=== PATIENT | female | born 1935 | race Caucasian/White ===

== ENCOUNTER 2018-07-10 15:21 | Inpatient (IN) | payer MEDICARE, BC ==
--- NOTE | 2018-07-10 16:26 | CT ---
CT CERVICAL SPINE NONCONTRAST: History: Neck injury. Fall. FINDINGS: Vertebral body height and alignment are maintained. Disc space narrowing most pronounced at the C6-7 level. Osteophytosis throughout the vertebral bodies and facets. Cervicothoracic junction is intact. IMPRESSION: 1. Degenerative changes cervical spine. No acute osseous abnormalities are demonstrated. 2. Atherosclerosis. POS: KENYATTA
--- NOTE | 2018-07-10 16:28 | CT ---
CT BRAIN: History: Unwitnessed fall, tachycardia. Pt gurgling upon arrival of EMS. Technique: Noncontrast enhanced CT images of the brain obtained. FINDINGS: There is diffuse cortical atrophy and deep white matter ischemic changes. Old area of infarction seen in the left periventricular white matter. No evidence of acute intracranial masses, hemorrhages, strokes or contusions seen. No evidence of calvarial fractures seen. No evidence of epidural hematoma seen. IMPRESSION: Cortical atrophy and deep white matter ischemic changes. POS: LEANNA
[2018-07-10 16:52] LABS: Bilirubin Negative (Negative); Blood, Urine Moderate (Negative); Clarity CLOUDY (Clear); Glucose, Urine (Dipstick) Negative (Negative); Leukocyte Large (Negative); Nitrite Negative (Negative); Protein, Urine (Dipstick) Trace mg/dL (Neg-Trace); Specific Gravity, Urine 1.013 (1.002-1.036)
[2018-07-10 16:54] LABS: Bacteria/HPF None Seen HPF (None Seen); Hyaline Casts/LPF 7-10 HYALINE CAST LPF (0-3 Hyaline); Squamous Epithelial 0-3 HPF (0-3)
[2018-07-10 17:05] LABS: Hemoglobin 8.8 g/dL (12.0-16.0); Mean Corpuscular HGB CONC 29.5 g/dL (32.0-36.0); Mean Corpuscular Hemoglobin 26.4 pg (27.0-31.0); Mean Corpuscular Volume 89.5 fL (78.0-98.0); Mean Platelet Volume 8.2 fL (7.4-10.4); Platelet Count 368 thou/uL (130-400); RBC Distribution Width 17.5 % (11.5-14.5); Red Blood Cell (RBC) Count 3.32 mill/uL (4.20-5.40); White Blood Cell (WBC) Count 19.3 thou/uL (4.8-10.8)
[2018-07-10 17:10] LABS: INR-International Normal Ratio 1.1; PTT 26.3 SEC (22.9-36.1)
[2018-07-10] MEDS ORDERED: Ondansetron PF 4 MG/2 ML Vial ONE ×3 (17:14→23:50)
[2018-07-10] MEDS ORDERED: Morphine 2 MG/ML SYRINGE ONE ×3 (17:14→23:50)
[2018-07-10 17:26] LABS: ALT (SGPT) 12 U/L (8-55); AST (SGOT) 18 U/L (5-34); Albumin 3.6 g/dL (3.4-4.8); Alkaline Phosphatase 135 U/L (40-150); Anion Gap 16 mmol/L (10-20); BUN (Urea Nitrogen) 29 mg/dL (9.8-20.1); Bilirubin, Total 0.3 mg/dL (0.2-1.2); Calc. Creatinine Clearance 0 mL/min (70-130); Calcium 8.8 mg/dL (7.8-10.44); Carbon Dioxide 19 mmol/L (23-31); Chloride 110 mmol/L (98-107); Estimated GFR-MDRD 48; Globulin 2.7 g/dL (2.4-3.5); Glucose 182 mg/dL (83-110); Potassium 4.1 mmol/L (3.5-5.1); Protein, Total 6.3 g/dL (6.0-8.3); Sodium 141 mmol/L (136-145)
--- NOTE | 2018-07-10 17:43 | RAD ---
RADIOGRAPH CHEST 1 VIEW: 07/10/18 HISTORY: 83-year-old female with tachycardia. FINDINGS: There are no air space densities, pulmonary edema, pneumothorax, or cardiomegaly. The lateral costop hrenic angles are sharp. IMPRESSION: No acute cardiopulmonary findings. zak [] POS: LEANNA
[2018-07-10 17:56] LABS: #Basophils 0.1 thou/uL (0.0-0.2); #Eosinphils 0.1 thou/uL (0.0-0.7); #Lymphocytes 1.2 thou/uL (1.20-3.40); #Monocytes 1.3 thou/uL (0.11-0.59); #Neutrophils 16.6 thou/uL (1.40-6.50); %Basophils 0.7 % (0.0-1.0); %Eosinophils 0.3 % (0.0-10.0); %Lymphocytes 6.1 % (21.0-51.0); %Monocytes 6.7 % (0.0-10.0); %Neutrophils 86.2 % (42.0-75.0); Anisocytosis SLIGHT = 6-15 cells (100X) (0-5/hpf); Hypochromia SLIGHT = 6-15 cells (100X) (0-5/hpf); MDiff Complete? YES; Platelet Morphology Comment Appears Adequate; Polychromasia SLIGHT = 2-3 cells (100X) (0-2/hpf)
[2018-07-10] MEDS ORDERED: Sodium Chloride 0.9% 100 ML ONE (18:09)
[2018-07-10] MEDS ORDERED: cefTRIAXone\\ROCEPHIN 2 GM VIAL ONE (18:09)
[2018-07-11] MEDS ORDERED: Furosemide 40 MG/4 ML VIAL SLOW IVP SCH (00:30)
[2018-07-11] MEDS ORDERED: Ondansetron PF 4 MG/2 ML Vial IVP PRN (02:17)
[2018-07-11 02:36] LABS: Hemoglobin 8.4 g/dL (12.0-16.0)
[2018-07-11 04:28] LABS: Anion Gap 17 mmol/L (10-20); BUN (Urea Nitrogen) 29 mg/dL (9.8-20.1); Calc. Creatinine Clearance 0 mL/min (70-130); Calcium 8.7 mg/dL (7.8-10.44); Carbon Dioxide 19 mmol/L (23-31); Chloride 112 mmol/L (98-107); Estimated GFR-MDRD 44; Glucose 185 mg/dL (83-110); Sodium 144 mmol/L (136-145)
[2018-07-11 06:13] LABS: Hemoglobin 8.3 g/dL (12.0-16.0)
--- NOTE | 2018-07-11 07:54 | HP ---
PRIMARY CARE DOCTOR: [facility]. CODE STATUS: DNR, disclosed with patient's daughter at bedside, okay to continue with medical treatment. TIME OF EVALUATION: 12:05 a.m. CHIEF COMPLAINT: Syncope. HISTORY OF PRESENT ILLNESS: An 83-year-old female patient with past medical history of hypertension and high cholesterol, previous stroke with left side deficit, came to the hospital with having an episode of syncope. The patient does not recall exactly the details as per daughter. It looks like the patient went to the restroom, and she was found on the ground, the EMS was called. The patient was found to be hypotensive, improved with IV fluid administration about 600 mL. The patient has been on GI workup for GI bleeding and has been scheduled for a colonoscopy next week. Symptoms were severe with no clear triggers or alleviating factors, sudden onset, lasted for a few minutes. The patient did not recall details,likely LOC. REVIEW OF SYSTEMS: CONSTITUTIONAL: No fever, chills, or generalized weakness. RESPIRATORY: No cough, sputum production, or shortness of breath. CARDIOVASCULAR: No chest pain or palpitation. GASTROINTESTINAL: The patient has some nausea. No vomiting or diarrhea. The patient does have abdominal pain. THERAPIST RADIATION: The patient has an episode of syncope, does not recall any details during the episode. Did not remember if she hit the floor. Also reported lightheadedness. GENITOURINARY: No burning on urination. EXTREMITIES: No leg swelling. All other systems were reviewed and negative except for the findings mentioned above. PAST MEDICAL HISTORY: As mentioned in the HPI. PAST SURGICAL HISTORY: Hysterectomy, tonsillectomy. PSYCH HISTORY: No previous psych history. FAMILY HISTORY: Reviewed and non contributory for current presentation SOCIAL HISTORY: No alcohol. The patient is a former cigarette smoker. ALLERGIES: CODEINE PHOSPHATE, PENICILLIN, AND SULFA. CURRENT MEDICATIONS: 1. Protonix. 2. Lisinopril. 3. Aspirin. 4. Atorvastatin. 5. Ferrous sulfate. PHYSICAL EXAMINATION: VITAL SIGNS: On presentation, blood pressure 127/48 with heart rate 79, respiratory rate 16, temperature 97.4, and oxygen saturation 95 on 2 L. GENERAL APPEARANCE: The patient is alert, oriented, not in acute distress. HEENT: Eyes, normal conjunctivae. Moist oral mucosa. Anicteric. No JVD. RESPIRATORY: Bilateral air entry. No rales. No wheezes. Symmetric expansion. CARDIOVASCULAR: Normal rate. Regular rhythm. No murmurs. No gallops. No edema. ABDOMEN: Soft. Normal bowel sounds. The patient does have tenderness. No guarding. No rebound. MUSCULOSKELETAL: Baseline range of motion and strength. No tenderness. SKIN: Warm and intact. No pallor. No rash. No redness. EXTREMITIES: Peripheral pulses are present. Capillary refill seems to be intact. NEURO: No evidence of any new focal weakness. Baseline speech. Cranial nerves seems to be intact. PSYCH: The patient is in good mood. No anxiety. Oriented, optimal judgment. DIAGNOSTIC DATA: EKG was reviewed, the patient has normal sinus rhythm, no evidence of acute ischemic events on the EKG at rate of 79, QT corrected 477. Radiology, head CT without contrast shows no acute changes. Neck CT shows no fracture or subluxation, no bony lesion, no cord compression. Chest showed no infiltrate. No pneumothorax, no hemothorax, no masses, no free air, this was read by radiologist. LABORATORY DATA: Labs are reviewed. The patient has a white count of 19.3, hemoglobin 8.8, repeat hemoglobin 8.4, MCV 89, platelet count 368 with coagulation, PT 14, INR 1.1, PTT 26.3. Sodium 141, potassium 4.1, chloride 110, carbon dioxide 19, anion gap 16, BUN 29, creatinine 1.09, GFR 48, glucose 182. LFTs were normal. UA was done, it was positive with 7-10 rbc's and white count greater than 50, too numerous to count. ASSESSMENT AND PLAN: The patient will be placed in the hospital with following medical problems: 1. Possible gastrointestinal bleeding. We will follow up hemoglobin. We will hydrate/transfuse as needed, GI consult for recommendations. GI protection. 2. Leukocytosis, unclear etiology, could be secondary to urinary tract infection or acute physical distress. We will monitor, we will treat accordingly. 3. Possible acute blood loss anemia, from gi bleed, hemoglobin is 8.8. I do not have previous visit's hemoglobin to compare. will trend h/h and transfuse as needed, GI eval for etiology. 4. Hyperglycemia with glucose 182. No diabetes reported. We will monitor, we will adjust treatment as needed. 5. Controlled hypertension, we will reconcile home medications, will not treat aggressively since the patient at risk for hypotension from bleeding. 6. Urinary tract infection. UA is positive. The patient has leukocytosis. The patient has been started on antibiotics, we will adjust treatment as per sensitivity.. 7. High cholesterol. We will reconcile home medications, low-cholesterol diet is advised. 8. Deep venous thrombosis prophylaxis. 9. Syncope. Unclear etiology could be secondary to hypotension secondary to blood loss. We will monitor on tele, we will do an echo in the morning. carotid doppler, work up /treatment of gi bleed. risk assessment: high risk due to new LOC/new/sudden neurological change Job ID: [id number] [facility]
--- NOTE | 2018-07-11 10:39 | ULT ---
CAROTID ULTRASOUND WITH MCNEIL SCALE AND DOPPLER DUPLEX COLOR FLOW IMAGING SPECTRAL ANALYSIS PERFORMED: DATE: 07/11/18 CLINICAL INDICATION: Syncope. FINDINGS: There is scattered mild atherosclerotic calcification of the carotid arteries. PEAK SYSTOLIC VELOCITY (CM/S): Right CCA 102 Left CCA 103 Right ICA 96 Left ICA 118 There is antegrade flow within the visualized bilateral vertebral arteries. IMPRESSION: 1. No hemodynamically significant stenosis of the right internal carotid artery. 2. No hemodynamically significant stenosis of the left internal carotid artery. POS: LEANNA
--- NOTE | 2018-07-11 12:17 | PDOC.EVN ---
Event Note - Event Note Event Note: Patient unchanged. BP maintained. Pulse in 90s. Pale. Dizzy with sitting up. Nurse checking orthostatics. H/H has remained above 8. Spoke with Dr. Law and he recommends clear liquid diet and he will prep her for colonoscopy for tomorrow morning. Will continue to follow vitals and H/H and transfuse if needed.
[2018-07-11 12:28] LABS: Hemoglobin 7.5 g/dL (12.0-16.0)
[2018-07-11] MEDS: Sodium Chloride 0.9% 1,000 ML IV SCH ×3 (12:39→22:00)
[2018-07-11] MEDS: Pantoprazole 80 MG in Sodium Chloride 0.9% 100 ML IVP SCH (13:48)
[2018-07-11 16:36] LABS: Hemoglobin 7.4 g/dL (12.0-16.0); Platelet Count 313 thou/uL (130-400)
[2018-07-11] MEDS: Acetaminophen 325 MG TAB PO PRN (17:13)
[2018-07-11] MEDS ORDERED: cefTRIAXone\\ROCEPHIN 1 GM in Sodium Chloride 0.9% 100 ML IVPB SCH (18:00)
[2018-07-11 19:56] LABS: Platelet Count 283 thou/uL (130-400)
[2018-07-11] MEDS: Ferrous Sulfate 325 MG TAB PO SCH (21:57)
[2018-07-12] MEDS: Pantoprazole 80 MG in Sodium Chloride 0.9% 100 ML IVP SCH ×3 (00:55→12:13)
[2018-07-12 07:56] LABS: Anion Gap 12 mmol/L (10-20); BUN (Urea Nitrogen) 27 mg/dL (9.8-20.1); Calc. Creatinine Clearance 44 mL/min (70-130); Calcium 8.2 mg/dL (7.8-10.44); Carbon Dioxide 17 mmol/L (23-31); Chloride 118 mmol/L (98-107); Estimated GFR-MDRD 49; Glucose 103 mg/dL (83-110); Potassium 3.7 mmol/L (3.5-5.1); Sodium 143 mmol/L (136-145)
[2018-07-12 07:57] LABS: #Basophils 0.1 thou/uL (0.0-0.2); #Eosinphils 0.3 thou/uL (0.0-0.7); #Lymphocytes 1.4 thou/uL (1.20-3.40); #Monocytes 1.1 thou/uL (0.11-0.59); #Neutrophils 15.8 thou/uL (1.40-6.50); %Basophils 0.3 % (0.0-1.0); %Eosinophils 1.7 % (0.0-10.0); %Lymphocytes 7.5 % (21.0-51.0); %Neutrophils 84.5 % (42.0-75.0); Hemoglobin 8.8 g/dL (12.0-16.0); Mean Corpuscular Hemoglobin 25.9 pg (27.0-31.0); Mean Corpuscular Volume 89.3 fL (78.0-98.0); Mean Platelet Volume 8.4 fL (7.4-10.4); Platelet Count 274 thou/uL (130-400); RBC Distribution Width 16.4 % (11.5-14.5); Red Blood Cell (RBC) Count 3.39 mill/uL (4.20-5.40); White Blood Cell (WBC) Count 18.7 thou/uL (4.8-10.8)
[2018-07-12] MEDS: Ferrous Sulfate 325 MG TAB PO SCH ×2 (09:27→21:02)
[2018-07-12] MEDS: Atorvastatin Calcium 20 MG TAB PO SCH (09:27)
[2018-07-12] MEDS ORDERED: ISOVUE-370 76%-LOCM 1 ML ONE (10:14)
[2018-07-12] MEDS: Sodium Chloride 0.9% 1,000 ML IV SCH ×2 (10:56→21:13)
--- NOTE | 2018-07-12 12:25 | PRG ---
DATE OF SERVICE: 07/12/2018 SUBJECTIVE: The patient is seen and examined at the bedside. She does not have much complaints to offer. She ate her lunch without any problems. OBJECTIVE: VITAL SIGNS: Blood pressure is 151/65, pulse is 84, temperature is 98.1, respiratory rate 20, and O2 saturation is 94% on room air. HEENT: Head is atraumatic and normocephalic. She follows my commands. Pupils are responding to light properly. Sclerae are nonicteric. Oral mucosa is moist. Conjunctivae are pinkish. NECK: Supple. LUNGS: Clear. HEART: S1 and S2, normal. No S3. No S4. No any murmur. ABDOMEN: Mildly distended. Tender to even superficial palpation. There is some guarding present in diffuse fashion. I am not able to palpate deeply, because of the amount of pain she gets. Bowel sounds are present. EXTREMITIES: No clubbing, cyanosis, or edema. NEUROLOGIC: She knows that she is in the hospital. She is able to follow my commands. She moves all 4 extremities. I do not see any focal deficits, but definitely she has some memory problems. She thinks that she collapsed in the bathroom at home and apparently, this happened when she was in the restaurant. LABORATORY DATA: Labs showed white count of 18.7, hemoglobin 8.8, hematocrit 30.2, and platelet count 274,000. Sodium of 143, potassium 3.7, chloride 118, CO2 of 17, BUN is 27, and creatinine 1.06. The rest of chemistry within normal limits. Carotid Doppler study did not show any significant hemodynamically stenosis. IMPRESSION: 1. Syncopal episode. The patient was found to have hemoglobin down to 7.0. This morning, she was started on pantoprazole IV drip. She received 1 unit of packed red blood cells. Her hemoglobin is 8.8 at this point. We are going to get Dr. Cruz, who is care information associate today for GI consulted. Apparently, Dr. Tristan, Emergency Room doctor called Dr. Schuler at the time of admission to the hospital. 2. Leukocytosis, most likely related to abdominal pain/process. We will obtain CT with p.o. contrast. 3. Hyperglycemia. PLAN: It was felt that she had urinary tract infection. Since her UA looked quite suspicious for urinary tract infection, she is on antibiotics, which is ceftriaxone, but her urine culture came back negative and stool occult blood test came back negative too. We will continue her pantoprazole drip. We will continue ceftriaxone. We will get GI involved and we will do serial H and H's. Job ID: [id number]
[2018-07-12 13:15] LABS: Hemoglobin 8.5 g/dL (12.0-16.0); Hemoglobin 8.6 g/dL (12.0-16.0)
[2018-07-12] MEDS: Cefepime 1 GM in Sodium Chloride 0.9% 100 ML IVPB SCH (13:58)
--- NOTE | 2018-07-12 15:37 | CT ---
CT ABDOMEN AND PELVIS WITH IV CONTRAST: Date: 07/12/18 PROVIDED CLINICAL HISTORY: Syncope and sepsis. FINDINGS: Small right and trace left pleural fluid. Increased density within the gallbladder may reflect sludge or stones, but is incompletely characteri zed. The liver, spleen, pancreas, and adrenal glands appear unremarkable. Bilateral renal cysts are seen. No evidence for hydronephrosis. There is free intraperitoneal fluid present, primarily about the right hepatic margin. There is conspicuous mural thickening involving the rectum, sigmoid colon, and probably also the desc ending colon, though this is less conspicuous. There is fat stranding seen in the perirectal fat. Uri nary bladder is decompressed, but appears grossly unremarkable. Vascular calcifications noted extensively involving the abdominal aorta and its branches. There is no evidence for bowel obstruction. There is no evidence for free intraperitoneal air. The osseous structures demonstrate no concerning osteoblastic or osteolytic lesions. IMPRESSION: 1. Conspicuous mural thickening involving the rectum, sigmoid colon, and to a lesser extent, descend ing colon, compatible with proctocolitis. Infectious, inflammatory, and ischemic etiologies should be considered. 2. Free intraperitoneal fluid, primarily involving the right hepatic margin. 3. Bilateral pleural fluid. 4. Chronic findings as above. POS: H
[2018-07-12] MEDS: Morphine 4 MG/ML VIAL SLOW IVP PRN (15:49)
[2018-07-12 18:21] LABS: Hemoglobin 10.9 g/dL (12.0-16.0)
[2018-07-12 21:22] LABS: Hemoglobin 9.4 g/dL (12.0-16.0)
[2018-07-12] MEDS ORDERED: GoLYTELY 4,000 ml Bottle PO SCH (21:30)
--- NOTE | 2018-07-13 00:15 | CON ---
DATE OF CONSULTATION: 07/12/2018 REASON FOR CONSULTATION: Anemia, abnormal GI imaging. CONSULTING PHYSICIAN: Dr. Luis Joe. 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 She states that she was in her usual state of health until yesterday when she was at a restaurant. She experienced GI upset prompting her go to the bathroom where she exhibited increased vomiting of nonbloody emesis. During the episode of vomiting, she apparently passed out next to the toilet and upon being found by family/friends, she was minimally responsive and did exhibit increased confusion, disorientation and minimal responsivity for approximately 20 to 30 minutes afterwards. She was also noted to exhibit loss of bladder control with urine noted on the floor, but she did not lose bowel control. With this loss of consciousness, she was subsequently brought to the ER for further evaluation. In the ER, she was noted to have a significantly decreased H and H as well as hypotension, which was responsive to IV fluid administration. Per conversation with the patient and patient's family, she denies any overt GI bleeding for the last 6 months with no complaints of hematemesis, melena, or hematochezia. However, she does state that she has been having approximately 1 solid black stool daily that has been present for the last 2 to 3 months while taking iron supplementation. She currently denies any nausea, vomiting, fevers, chills, but does exhibit lower abdominal pain. Her lower abdominal pain is located primarily in the right lower quadrant that will radiate to the suprapubic region. The pain is characterized as a throbbing type pain, intermittent and will reach a severity of 9/10. She denies any clear exacerbating or alleviating factors. Of note, the patient has never had a colonoscopy before, but does not endorse any significant family history of colon polyps or colon cancer. REVIEW OF SYSTEMS: A 10-category review of systems was obtained with all responses negative except for the pertinent positives as listed in the HPI. PAST MEDICAL HISTORY: As per HPI. PAST SURGICAL HISTORY: Hysterectomy and tonsillectomy. FAMILY HISTORY: Denies any GI malignancies. SOCIAL HISTORY: Denies any tobacco, alcohol, or illicit drug use. OUTPATIENT MEDICATIONS: Reviewed. ALLERGIES: 1. CODEINE. 2. PENICILLIN. 3. SULFA. PHYSICAL EXAMINATION: VITAL SIGNS: Temperature 97.9, pulse 91, blood pressure 139/70, respiratory rate 20, saturating 93% on room air. GENERAL: The patient was lying in bed, in no acute distress. Alert and oriented x4. HEENT: Normocephalic, atraumatic. NECK: Supple. No JVD or scleral icterus noted. CARDIOVASCULAR: Regular rate and rhythm with no discernible murmurs, gallops, or rubs. RESPIRATORY: Clear to auscultation bilaterally with no discernible wheezes or rales. ABDOMEN: Normoactive bowel sounds. Soft, nondistended, however, significant pain to palpation in all abdominal quadrants with both light and deep palpation. Carnett sign positive. EXTREMITIES: No cyanosis, clubbing, or edema. LABORATORY DATA: CBC with a white blood cell count of 18.7, hemoglobin 8.8, hematocrit 30.2, platelets 274. Chemistry with a sodium of 143, potassium 3.7, chloride 118, CO2 of 17, BUN 27, creatinine 1.06, glucose 103. Urinalysis was consistent with a urinary tract infection. IMAGING DATA: CT of the abdomen and pelvis obtained on July 12, 2018 showed free intraperitoneal fluid about the right hepatic margin, but there was also conspicuous mural thickening of the rectum, sigmoid and descending colon with positive fat stranding surrounding. Extensive vascular calcifications of both the abdominal aorta and its branches were also noted. ASSESSMENT AND PLAN: The patient is an 83-year-old female with past medical history of hypertension, hyperlipidemia, and cerebrovascular accident with residual left-sided deficits, presenting with complaints of abdominal pain and significant anemia. Abdominal pain/anemia: The patient is presenting with a relatively acute onset of right lower quadrant abdominal pain that would radiate to the suprapubic region and characterized as a throbbing type sensation, reaching a severity of 9/10 over the same time. The patient also endorses an episode of increased nausea, vomiting, resulting in loss of consciousness and what appears to be a postictal period after regaining consciousness as characterized by minimally responsive and disoriented for the next 20-30 minutes after her loss of consciousness and loss of bladder control. On admission to the ER, she was noted to have a significantly decreased H and H consistent with a significant anemia. However, upon questioning both patient and family, she does not exhibit any overt GI bleeding, although she does take iron supplementations, which could potentially hide an upper GI bleed. At this point, the origin of her anemia is unclear, but could include bleeding within the upper GI tract that has been currently masked by iron supplementation with the differential including esophagitis, gastritis, duodenitis, peptic ulcer disease, arteriovenous malformation, Dieulafoy lesion and/or GI neoplasm. With the resultant blood loss from any of these potential sources, it could have resulted in decreased cerebral perfusion and possible loss of consciousness. Given the significant calcifications of her aorta and its resulting branches, any decreased blood flow/perfusion to the abdomen could also create an ischemic type picture resulting in either ischemic colitis or mesenteric ischemia, both of which could contribute to her current abdominal pain. Given the CT finding showing mural thickening of the distal colon, again an ischemic etiology cannot be ruled out at this time, but neither can a GI neoplastic process. RECOMMENDATIONS: 1. We would continue to trend H and H and transfuse as necessary to maintain an H and H of 7/21. 2. Continue to monitor clinically for signs of active GI bleeding. 3. We would hold on iron supplementation now given the confounding factor for possible melena. 4. We would hold on any anticoagulation now given a possible GI bleeding source. 5. Continue the clear liquid diet today with GoLYTELY to be administered tonight in anticipation of endoscopy tomorrow. 6. We will plan for both upper endoscopy and colonoscopy tomorrow morning for evaluation of the GI tract of anemia of unknown origin. 7. We will continue to follow. Please call with any questions. Job ID: [id number]
[2018-07-13] MEDS: Pantoprazole 80 MG in Sodium Chloride 0.9% 100 ML IVP SCH ×2 (00:37→09:35)
[2018-07-13] MEDS: Cefepime 1 GM in Sodium Chloride 0.9% 100 ML IVPB SCH ×2 (01:22→12:05)
[2018-07-13] MEDS: Morphine 4 MG/ML VIAL SLOW IVP PRN (04:03)
[2018-07-13] MEDS: Sodium Chloride 0.9% 1,000 ML IV SCH ×3 (04:06→16:33)
[2018-07-13] MEDS ORDERED: Magnesium Citrate 300 ML BOT PO SCH (07:15)
[2018-07-13] MEDS: Ferrous Sulfate 325 MG TAB PO SCH ×2 (08:19→21:50)
[2018-07-13] MEDS: Atorvastatin Calcium 20 MG TAB PO SCH (08:19)
[2018-07-13] MEDS ORDERED: GoLYTELY 4,000 ml Bottle PO SCH ×2 (10:15)
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
--- NOTE | 2018-07-13 13:41 | PRG ---
DATE OF SERVICE: 07/13/2018 SUBJECTIVE: The patient is seen and examined at the bedside. She is quite comatose during my visit. She just received a dose of morphine for her abdominal discomfort. Her daughter is present in the room during my visit and I had a long discussion with her about the patient's current situation. OBJECTIVE: VITAL SIGNS: Blood pressure is 151/68, pulse is 77, temperature is 97.8, respirations 17, and O2 saturation is 94% on room air. She is arousable, but she falls asleep quickly. LUNGS: Breath sounds somewhat diminished at both bases, but no rales or wheezing. HEART: S1, S2 normal. No S3. No S4. ABDOMEN: Soft. Slightly tender on deeper palpation, but again the patient received morphine injection. Bowel sounds somewhat sluggish. EXTREMITIES: No clubbing, cyanosis, or edema. NEUROLOGIC: Comatose. She follows my commands when she is aroused. We will reassess her neurological status later when she is not under influence of morphine. LABORATORY DATA: None today. CT of the abdomen and pelvis showed; 1. Conspicuous mural thickening involving the rectum, sigmoid colon and to a lesser extent descending colon compatible with proctocolitis infectious inflammatory or ischemic etiology with some free intraperitoneal fluid, primarily involving the right hepatic margin and bilateral pleural fluid. 2. Echocardiogram showed technically inadequate exam. Consider a repeat exam. Ejection fraction is visualized at 50% to 55%. Structurally, normal mitral valves. Normal aortic valve and mild tricuspid regurgitation, with normal size left atrium. IMPRESSION: 1. Syncopal episode, most likely related to GI blood loss. The patient was transfused yesterday with 1 unit of packed red blood cells. The last hemoglobin is 9.4 from last night. The patient is monitored closely for active GI bleeding. Her iron supplementation was put on hold and she is not on any anticoagulation at this point. She is prepped for her colonoscopy. Apparently, this cannot be done today, so it is postponed until tomorrow morning. 2. Colitis of unclear etiology at this point. 3. Leukocytosis, most likely related to acute colitis. We will obtain CBC. 4. Hypertension. 5. Suspected urinary tract infection, but urine cultures came back negative, which is making the diagnosis unlikely correct. PLAN: Plan is to continue close monitoring. Obtain CBC. She is going to be scoped tomorrow by Dr. Cruz. I will continue cefepime 1 g every 12 hours. Continue pantoprazole drip. Continue p.r.n. morphine. Job ID: [id number]
[2018-07-13] MEDS: metroNIDAZOLE 500 MG in Premix Bag 1 BAG IVPB SCH ×2 (13:54→21:51)
[2018-07-13 14:18] LABS: #Eosinphils 0.4 thou/uL (0.0-0.7); #Lymphocytes 1.3 thou/uL (1.20-3.40); #Monocytes 1.2 thou/uL (0.11-0.59); #Neutrophils 15.6 thou/uL (1.40-6.50); %Basophils 0.3 % (0.0-1.0); %Eosinophils 2.2 % (0.0-10.0); %Lymphocytes 7.1 % (21.0-51.0); %Monocytes 6.5 % (0.0-10.0); Hemoglobin 8.9 g/dL (12.0-16.0); Mean Corpuscular Hemoglobin 27.2 pg (27.0-31.0); Mean Corpuscular Volume 87.6 fL (78.0-98.0); Mean Platelet Volume 8.6 fL (7.4-10.4); Platelet Count 255 thou/uL (130-400); RBC Distribution Width 16.2 % (11.5-14.5); Red Blood Cell (RBC) Count 3.26 mill/uL (4.20-5.40); White Blood Cell (WBC) Count 18.5 thou/uL (4.8-10.8)
--- NOTE | 2018-07-13 22:34 | PRG ---
DATE OF SERVICE: 07/13/2018 REASON FOR CONSULTATION: Anemia, abnormal GI imaging. SUBJECTIVE: The patient was scheduled for both upper and lower endoscopy this morning, but was unable to tolerate the prep last night, drinking approximately 600 mL of the 4000 mL GoLYTELY prep. She did experience some loose stools, but were still very unclear, making progression towards the colonoscopy problematic and prone to complication. She did receive an additional bottle of magnesium citrate in order to facilitate passage of bowel movements and was able to tolerate that somewhat better, but given her history of cardiac disease, this is less preferable to GoLYTELY due to fluid shifts. Upon conferring with the patient today, she states that she still continues to have some mild abdominal pain, although it seems to be improved when compared to previous, although she had received pain medication earlier in the day to help with her pain control. Currently, she denies any nausea, vomiting, fevers, chills, dysphagia, or odynophagia. OBJECTIVE: VITAL SIGNS: Temperature 97.6, pulse 76, blood pressure 144/60, respiratory rate 17, saturating 93% on room air. GENERAL: The patient was lying in bed, in no acute distress. Alert and oriented x4. CARDIOVASCULAR: Regular rate and rhythm. RESPIRATORY: Clear to auscultation bilaterally. ABDOMEN: Normoactive bowel sounds. Soft, nondistended. Significant pain to palpation in all abdominal quadrants to both light and deep palpation. EXTREMITIES: No cyanosis, clubbing, or edema. LABORATORY STUDIES: No current labs were available for review. IMAGING DATA: No current GI imaging is available for review. ASSESSMENT AND PLAN: The patient is an 83-year-old female with past medical history of hypertension, hyperlipidemia, cerebrovascular accident with left-sided deficits, presenting with generalized abdominal pain and significant anemia. Abdominal pain/anemia. The patient initially presented with relatively acute onset of right lower quadrant abdominal pain that would radiate to the suprapubic region and characterizes a throbbing type sensation with exquisite sensitivity to movement and palpation on physical exam. This was associated with increased nausea, vomiting, and what appeared to be a loss of consciousness and a possible postictal period after regaining consciousness. On admission to the ER, she was noted to have significantly decreased H and H, but she denies any symptoms of overt GI bleeding. She has been having black stools since starting iron supplementation, but these stools have been relatively solid in nature raising the concern whether or not there maybe an occult GI bleed going on. She did undergo a CT scan on admission showing mural thickening of the distal colon, raising concern for ischemic versus inflammatory pathology in that particular region. RECOMMENDATIONS: 1. Would continue to trend H and H and transfuse as necessary to maintain an H and H of 7/. 2. Continue to monitor clinically for signs of active GI bleeding. 3. Would continue to hold any anticoagulation for now given possible GI bleeding. 4. I spoke with the patient and strongly encouraged adherence to the GoLYTELY prep prior to colonoscopy to facilitate visualization of the colonic mucosa. She states that she will try her best in order to comply with this prior to colonoscopy. 5. We will plan for both upper and lower endoscopy tomorrow for evaluation of the GI tract. 6. We will continue to follow. Please call with any questions. Job ID: [id number]
[2018-07-14] MEDS: Cefepime 1 GM in Sodium Chloride 0.9% 100 ML IVPB SCH ×2 (01:16→14:05)
[2018-07-14] MEDS: Pantoprazole 80 MG in Sodium Chloride 0.9% 100 ML IVP SCH (01:18)
[2018-07-14] MEDS: metroNIDAZOLE 500 MG in Premix Bag 1 BAG IVPB SCH ×3 (05:15→21:21)
[2018-07-14] MEDS: Sodium Chloride 0.9% 1,000 ML IV SCH ×2 (05:16→14:05)
[2018-07-14] MEDS: Ferrous Sulfate 325 MG TAB PO SCH ×2 (08:32→21:21)
[2018-07-14] MEDS: Atorvastatin Calcium 20 MG TAB PO SCH (08:32)
[2018-07-14] MEDS ORDERED: Albuterol Sulfate 2.5 mg/3 ml Neb ONE (10:25)
[2018-07-14] MEDS ORDERED: Promethazine HCl 25 MG/ML VIAL IM PRN (12:38)
[2018-07-14] MEDS ORDERED: Promethazine HCl 25 MG/ML VIAL SLOW IVP PRN (12:38)
[2018-07-14] MEDS ORDERED: Ondansetron HCl/PF 4 MG/2 ML Vial IVP PRN (12:38)
--- NOTE | 2018-07-14 14:49 | PRG ---
DATE OF SERVICE: 07/14/2018 SUBJECTIVE: The patient is seen and examined at bedside. She just came back from the procedure room, where she had colonoscopy done by Dr. Cruz. Her daughter is present in the room during my visit. OBJECTIVE: VITAL SIGNS: Blood pressure is 149/61, pulse is 87, temperature 97.2, respirations 20, O2 saturation is 98% on room air. HEAD: Atraumatic and normocephalic. She is in deep comatose state postprocedure. LUNGS: Clear. HEART: S1, S2 normal. No S3. No S4. ABDOMEN: Mildly distended. Bowel sounds are sluggish. No organomegaly. EXTREMITIES: No clubbing, cyanosis, or edema. NEUROLOGICAL: Not done since the patient is in comatose state postprocedure. LABORATORY DATA: None today. IMPRESSION: 1. Abdominal pain with gastrointestinal bleeding status post colonoscopy findings. a. 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 b. 3 to 4 cecal mass. 2. Diffuse mucosal erythema and ulceration of left colon consistent with ischemic colitis. 3. Syncopal episode secondary to GI bleed, most likely. 4. Hypertension, negative urine cultures. PLAN: We are waiting for the final official report from colonoscopy, but it looks like there is a suspicion for malignancy and biopsies were done and we are waiting for pathology at this point and pain management with morphine. Job ID: [id number]
[2018-07-14] MEDS ORDERED: Lidocaine 1% PF 5 ML VIAL ONE (14:50)
[2018-07-14] MEDS ORDERED: PROPOFOL 200 MG/20 ML VIAL ONE (14:50)
--- NOTE | 2018-07-14 14:57 | OP ---
DATE OF PROCEDURE: 07/14/2018 INDICATION FOR PROCEDURE: Anemia of unknown origin, hematochezia. PROCEDURES PERFORMED: Esophagogastroduodenoscopy with biopsy and colonoscopy with biopsy. DESCRIPTION OF PROCEDURE: After the risks and benefits of the procedures were explained to the patient including risks of bleeding, infection, perforation, reactions to anesthesia, aspiration and/or pain, informed consent was obtained. The patient was then taken to the endoscopy suite, where deep sedation was administered via propofol and anesthesia support. Once adequate sedation was achieved, the standard gastroscope was introduced into the mouth with intubation of the esophagus, stomach, and proximal small intestine with the findings listed below. The patient tolerated this portion of the procedure well with no immediate perioperative complications. Upon completion of this phase of the procedures, all equipment was removed and the bed was rotated approximately 180 degrees. With the patient was in adequate position, a digital rectal examination was performed, followed by introduction of the standard colonoscope, which was then advanced to the terminal ileum with mild difficulty requiring manual abdominal pressure to facilitate passage of the scope. The quality of the prep was fair to good with a moderate amount of retained semi-solid and liquid stool that was amenable to irrigation and suctioning. The patient tolerated this portion of the procedure well with no immediate perioperative complications. Upon conclusion of this portion of the procedure, all equipment was removed from the patient and she was transferred to PACU in satisfactory condition. EGD FINDINGS: Esophagus: Normal-appearing mucosa was seen in the proximal, mid, and distal esophagus; however, a circumferential nonobstructive ring was seen at the GE junction that was easily traversed with the standard gastroscope. This was not intervened upon due to the patient denying any symptoms of dysphagia. Otherwise, there was no evidence of erosions, ulcerations, mass, lesions, or active/recent bleeding. Stomach: Normal-appearing mucosa was seen in the gastric cardia, body, antrum, greater curvature, and incisura. Two 1-mm arteriovenous malformations were seen in the gastric fundus just distal to the GE junction, but did not display any evidence of active/recent bleeding. Otherwise, the remainder of the stomach was essentially normal with no evidence of ulcerations, mass, or lesions. Duodenum: A 1 mm arteriovenous malformation was seen in the duodenal bulb, again with no high-risk stigmata and no evidence of active/recent bleeding. This AVM was not intervened upon, given the low likelihood of GI bleed. Otherwise, normal-appearing mucosa was seen in both the duodenal bulb and second portion of the duodenum. There was no evidence of erosions, ulcerations, mass, lesions, or active/recent bleeding. IMPRESSION: 1. Three 1-mm arteriovenous malformation seen in the gastric fundus and duodenal bulb all without high-risk stigmata nor evidence of active/recent bleeding. 2. A circumferential nonobstructive fibrous ring was seen in the distal esophagus that was easily traversed with the standard gastroscope and not intervened upon during this examination. COLONOSCOPY FINDINGS: Digital rectal exam: Small to medium size external hemorrhoids were seen on external examination. Colon findings: Normal-appearing mucosa was seen in the terminal ileum as well as at the ileocecal valve; however, a 3 to 4 cm fungating and ulcerated mass was seen in the cecum overlying the appendiceal orifice and prevented visualization of this structure. Given the high risk of malignancy, multiple biopsies were taken of this mass and placed in a specimen jar for evaluation. No tattoo was placed given the location of this lesion sitting at top of the appendiceal orifice. Otherwise, normal-appearing mucosa was seen in the ascending, transverse, and proximal descending colon; however, at approximately 40 cm past the anal verge, the colonic mucosa exhibited significant increased mucosal erythema as well as patchy and sometimes confluent ulcerations arranged in either patches or linear formation. Multiple biopsies were taken from the colon at 40 cm, 30 cm, 25 cm, 20 cm, and 10 cm for evaluation of this extensive inflammation and ulceration. At times, the ulceration/inflammation appear masslike especially at 25 cm past the anal verge with multiple biopsies taken from this region for possible malignant process; however, the majority of the biopsies taken in this region displayed slowed bleeding upon retrieval of the specimen, more consistent with ischemic colitis. Normal appearing mucosa was seen on rectal retroflexion. IMPRESSION: 1. A 3 to 4 cm ulcerated and fungating mass seen in the cecum concerning for colonic malignancy, status post biopsies. 2. Circumferential mucosal erythema with patchy and at times linear ulcerations seen from the rectum to 40 cm past the anal verge, status post biopsies. This is consistent with ischemic colitis, but could also reflect a malignant process. 3. External hemorrhoids. RECOMMENDATIONS: 1. Will follow up on biopsy results with further recommendations to follow pathology read especially with a cecal mass. 2. We would continue to trend hemoglobin and hematocrit and transfuse as necessary to maintain a hemoglobin and hematocrit of 7/21. 3. Continue to monitor clinically for signs of active GI bleeding. 4. Would advance the patient's diet as tolerated. 5. Would consult the Oncology Service upon obtaining the results of the pathology specimens. 6. Would recommend obtaining a CT angiography of the abdominal vessels given the high likelihood of left-sided ischemic colitis. 7. Higher fiber diet given the presence of external hemorrhoids. 8. We will continue to follow. Please call with any questions. Job ID: [id number]
[2018-07-15] MEDS: Cefepime 1 GM in Sodium Chloride 0.9% 100 ML IVPB SCH ×2 (01:12→12:13)
[2018-07-15] MEDS: Sodium Chloride 0.9% 1,000 ML IV SCH ×2 (01:17→14:32)
[2018-07-15] MEDS: metroNIDAZOLE 500 MG in Premix Bag 1 BAG IVPB SCH (05:51)
[2018-07-15 07:28] LABS: #Basophils 0.1 thou/uL (0.0-0.2); #Eosinphils 0.7 thou/uL (0.0-0.7); #Lymphocytes 1.2 thou/uL (1.20-3.40); #Monocytes 1.5 thou/uL (0.11-0.59); #Neutrophils 10.2 thou/uL (1.40-6.50); %Basophils 0.6 % (0.0-1.0); %Monocytes 10.6 % (0.0-10.0); %Neutrophils 74.8 % (42.0-75.0); Hemoglobin 8.6 g/dL (12.0-16.0); Mean Corpuscular Hemoglobin 26.8 pg (27.0-31.0); Mean Corpuscular Volume 89.3 fL (78.0-98.0); Mean Platelet Volume 8.3 fL (7.4-10.4); Platelet Count 247 thou/uL (130-400); RBC Distribution Width 16.3 % (11.5-14.5); Red Blood Cell (RBC) Count 3.21 mill/uL (4.20-5.40); White Blood Cell (WBC) Count 13.7 thou/uL (4.8-10.8)
[2018-07-15 07:33] LABS: Anion Gap 15 mmol/L (10-20); BUN (Urea Nitrogen) 8 mg/dL (9.8-20.1); Calc. Creatinine Clearance 64 mL/min (70-130); Carbon Dioxide 16 mmol/L (23-31); Chloride 113 mmol/L (98-107); Estimated GFR-MDRD 76; Glucose 91 mg/dL (83-110); Sodium 141 mmol/L (136-145)
[2018-07-15 07:37] LABS: Potassium 2.8 mmol/L (3.5-5.1)
[2018-07-15] MEDS: Ferrous Sulfate 325 MG TAB PO SCH ×2 (08:18→21:03)
[2018-07-15] MEDS: Atorvastatin Calcium 20 MG TAB PO SCH (08:18)
[2018-07-15] MEDS: Potassium Chloride 20 MEQ TAB PO SCH ×2 (08:18→12:13)
--- NOTE | 2018-07-15 12:19 | CT ---
CT ANGIO OF ABDOMEN AND PELVIS PERFORMED WITH INTRAVENOUS CONTRAST ENHANCEMENT WITH 3D RECONSTRUCTION : History: Ischemic colitis pain x 5 days. Patient has a history of hysterectomy and appendectomy. Comparison: 07-12-18 CT study. FINDINGS: There are worsening bilateral pleural effusions with bibasilar atelectatic lung changes seen. The liver and spleen appear unremarkable in this more angiographic phase exam. Pancreas region is unr emarkable. There is what appear to be small gallstones present. Right adrenal gland is normal. Left adrenal gland has a somewhat hyperplastic appearance. Bilateral h ypodensities involving the kidneys appear to represent . The right kidney is now rota brijesh. No significant periaortic or mesenteric adenopathy. There is persistent bowel wall thickening in the descending colon and more pronounced changes of the sigmoid. Changes appear fairly similar to the prior examination. Some of the descending colon changes may be slightly improved. There appears to be some slight prominence of some of the vessels surround ing the sigmoid colon which is stable. The ascites noted within the abdomen is fairly similar to the previous examination. Angiographic portion of this examination shows fairly good examination obtained. There is moderate at herosclerotic changes of the aorta. There is no aneurysm or dissection. There is minimal narrowing of the origin of the celiac artery. No significant stenosis of the superio r mesenteric artery. There is a patent inferior mesenteric artery. There appears to be a mild degree of stenosis of the origin, but there is good flow in the more distal portion of the CATHERINE. Atherosclero tic changes are seen of the iliac arteries which all appear patent. IMPRESSION: Worsening bilateral pleural effusions with bibasilar atelectasis. 2. Fairly stable ascites. 3. Overall fairly stable appearance to the colonic wall thickening although some of the changes of th e descending colon may be slightly improved. Changes again are compatible with colitis and ischemic c olitis would be one of the definite possibilities. 4. Bilateral renal cysts. 5. Patent celiac, superior mesenteric and inferior mesenteric arteries. There appears to be a mild de gree of stenosis of the origin of the inferior mesenteric artery. POS: [facility]
[2018-07-15 12:32] LABS: Potassium 3.2 mmol/L (3.5-5.1)
--- NOTE | 2018-07-15 13:50 | PDOC.PN ---
- Subjective Encounter Start Date: 07/15/18 Encounter Start Time: 07:40 Pt seen for followup re: colon cancer. Denies chest pain, shortness of breath, fevers or chills. - Objective Resuscitation Status - Order Detail: 07/11/18 02:45 Resuscitation Status Routine Resuscitation Status: DNAR: NO Resuscitation Discussed with: patient and daughter ANDREA Reviewed: Yes Vital Signs & Weight: Vital Signs (12 hours) Temp Pulse Resp BP Pulse Ox 07/15/18 11:55 98.7 F 91 16 165/70 H 95 07/15/18 08:10 99 F 88 16 164/71 H 93 L 07/15/18 03:56 98.5 F 83 20 161/69 H 96 Weight Weight 155 lb 3.2 oz I&O: 07/14/18 07/15/18 07/16/18 06:59 06:59 06:59 Intake Total 7933 1999 Balance 7933 1999 Result Diagrams: 07/15/18 06:58 07/15/18 12:02 EKG Reviewed by me: Yes (Tele: NSR) Phys Exam - Physical Examination Constitutional: NAD HEENT: moist MMs Neck: supple Respiratory: clear to auscultation bilateral Cardiovascular: RRR Gastrointestinal: soft Neurological: moves all 4 limbs Psychiatric: normal affect Dx/Plan (1) Colon cancer Code(s): C18.9 - MALIGNANT NEOPLASM OF COLON, UNSPECIFIED Status: Acute Comment: will consult oncology (2) Hypokalemia Code(s): E87.6 - HYPOKALEMIA Status: Acute Comment: replace potassium (3) HTN (hypertension) Code(s): I10 - ESSENTIAL (PRIMARY) HYPERTENSION Status: Chronic Comment: BP high, resume lisinopril (4) Dyslipidemia Code(s): E78.5 - HYPERLIPIDEMIA, UNSPECIFIED Status: Chronic Comment: continue statin - Plan * . Review of Systems - Review of Systems Cardiovascular: negative: chest pain, palpitations, orthopnea, paroxysmal nocturnal dyspnea, edema, light headedness Gastrointestinal: negative: Nausea, Vomiting, Abdominal Pain, Diarrhea, Constipation, Melena, Hematochezia - Medications/Allergies Allergies/Adverse Reactions: Allergies Allergy/AdvReac Type Severity Reaction Status Date / Time codeine Allergy Verified 07/11/18 15:17 Penicillins Allergy Verified 07/11/18 15:17 Sulfa (Sulfonamide Allergy Verified 07/11/18 15:17 Antibiotics) Medications: Current Medications Acetaminophen (Tylenol) 650 mg PO Q4H PRN PRN Reason: Headache/Fever/Mild Pain (1-3) Last Admin: 07/11/18 17:13 Dose: 650 mg Atorvastatin Calcium (Lipitor) 20 mg PO DAILY [facility] Last Admin: 07/15/18 08:18 Dose: 20 mg Ferrous Sulfate (Feosol) 325 mg PO BID [facility] Last Admin: 07/15/18 08:18 Dose: 325 mg Sodium Chloride (Normal Saline 0.9%) 1,000 mls @ 100 mls/hr IV .Q10H [facility] Last Admin: 07/15/18 01:17 Dose: 1,000 mls Cefepime HCl 1 gm/ Sodium (Chloride) 100 mls @ 200 mls/hr IVPB 0100,1300 [facility] Last Admin: 07/15/18 12:13 Dose: 100 mls Morphine Sulfate (Morphine) 2 mg SLOW IVP Q4H PRN PRN Reason: Severe Pain (7-10) Last Admin: 07/13/18 04:03 Dose: 2 mg Ondansetron HCl (Zofran) 4 mg IVP Q4H PRN PRN Reason: Nausea/Vomiting Last Admin: 07/12/18 14:45 Dose: 4 mg Pantoprazole Sodium (Protonix) 40 mg PO DAILY [facility] Last Admin: 07/15/18 08:18 Dose: 40 mg Polyethylene Glycol/Electrolytes (Golytely) 4,000 ml PO WILLCALL [facility] Potassium Chloride (K-Dur) 40 meq PO 0815,1245 [facility] Stop: 07/15/18 14:00 Last Admin: 07/15/18 12:13 Dose: 40 meq Potassium Chloride (K-Dur) 40 meq PO 1600 [facility] Stop: 07/15/18 18:00 Sodium Chloride (Flush - Normal Saline) 10 ml IVF Q12HR [facility] Last Admin: 07/15/18 08:18 Dose: 10 ml Sodium Chloride (Flush - Normal Saline) 10 ml IVF PRN PRN PRN Reason: Saline Flush Last Admin: 07/12/18 13:59 Dose: 10 ml
[2018-07-15] MEDS ORDERED: Lisinopril 10 MG TAB PO SCH (14:00)
--- NOTE | 2018-07-15 14:26 | PQF ---
DATE: 07-15-18 ATTN: DR. MONAE ORDAZ Please exercise your independent, professional judgment in responding to the clarification form. Clinical indicators are provided on the bottom of this form for your review Please check appropriate box(s): [ ] Acute Renal Failure (ARF) / Acute Kidney Injury (RADHA) [ ] Insignificant Lab Values [ ] Other diagnosis [ ] Unable to determine In addition, please specify: Present on Admission (POA): [ ] Yes [ ] No [ ] Unable to determine National Kidney Foundation Guidelines for CKD Staging Stage I Kidney damage with normal or increased GFR GFR > 90 Stage II Kidney damage with mildly decreased GFR GFR 60-89 Stage III Kidney damage with moderately decreased GFR GFR 30-59 Stage IV Kidney damage with severely decreased GFR GFR 16-29 Stage V Kidney failure GFR< 15 ESRD End Stage Renal Disease On dialysis Acute Renal Failure/Acute Kidney Failure defined as: Increases in SCr by (>) 0.3 mg/dl within 48 hours OR- Increases in SCr by (>) 1.5 times baseline, known or presumed to have occurred within the prior 7 days OR- Urine volume < 0.5 ml/kg/hour for 6 hours (KDIGO supplement 2012 for RIFLE/DANYA criteria) For continuity of documentation, please document condition throughout progress notes and discharge summary. Thank You. CLINICAL INDICATORS - SIGNS / SYMPTOMS / LABS GFR: 07-10-18: 48, 07-11-18: 44 07-12-18: 49 07-15-18: 76 CREATININE: 07-10-18: 1.09 1: 1.18 07-12-18: 1.06 BUN: 07-10-18: 29 07-11-18: 29 07-12-18: 27 07-15-18: 8 H&P: PATIENT FOUND TO BE HYPOTENSIVE, IMPROVED WITH IVF ADMINISTRATION ABOUT 600 ML RISK FACTORS: H&P: HOME MEDS: LISINOPRIL, ASA, ATORVASTATIN TREATMENTS: ER: IVF NS MAR: IVF NS, KDUR (This form is maintained as a part of the permanent medical record) 2014 [employer] All Rights Reserved LING [email or web address] Office: [phone] [facility]
[2018-07-15] MEDS ORDERED: Potassium Chloride 20 MEQ TAB PO SCH (16:00)
--- NOTE | 2018-07-15 18:19 | PRG ---
DATE OF SERVICE: 07/15/2018 REASON FOR CONSULTATION: Anemia, abnormal GI imaging, colonic adenocarcinoma. SUBJECTIVE: The patient did well today with no acute events or problems overnight. Tonight, she states that she is doing well with no episodes of nausea, vomiting, fevers, chills, abdominal pain, or GI bleeding. We spoke about the diagnosis of colonic adenocarcinoma with a mass within the cecum and she stated that she would like to confer with her about further management of care. Oncology has already been consulted for this particular case and I appreciate their input. OBJECTIVE: VITAL SIGNS: Temperature 98.3, pulse 91, blood pressure 169/73, respiratory rate 16, and saturating 93% on room air. GENERAL: The patient is lying in bed, in no acute distress. Alert and oriented x4. CARDIOVASCULAR: Regular rate and rhythm. RESPIRATORY: Clear to auscultation bilaterally. ABDOMEN: Normoactive bowel sounds. Soft, nondistended. Tenderness to palpation in all abdominal quadrants, but improved from previous. EXTREMITIES: No cyanosis, clubbing, or edema. LABORATORY DATA: CBC with a white blood cell count of 13.7, hemoglobin 8.6, hematocrit 28.6, and platelets 247. Chemistry with a sodium of 141, potassium 2.8, chloride 113, CO2 of 16, BUN 8, creatinine 0.73, glucose 91. IMAGING DATA: Colonoscopy performed on July 14, 2018 showed a large 3 to 4 cm mass within the cecum with biopsies consistent with colonic adenocarcinoma, multiple ulcerations as well as mottled appearance, and increased mucosal erythema was seen in the distal descending, sigmoid, and rectum with biopsies consistent with ischemic colitis. CT angiography performed on July 15, 2018 showed fairly normal patency of both the celiac and SMA take off. There was some minimal narrowing of the origin of the inferior mesenteric artery, but there was good flow in the more distal portion of the CATHERINE. ASSESSMENT AND PLAN: The patient is an 83-year-old female with past medical history of hypertension, hyperlipidemia, cerebrovascular accident with left-sided deficits, initially presenting with abdominal pain and anemia, now with colonoscopy showing both colonic adenocarcinoma as well as ischemic colitis of the left colon. Anemia/colonic adenocarcinoma. The patient initially presented with relatively acute onset right lower quadrant abdominal pain that would radiate to the suprapubic region and was associated with increased nausea and vomiting. On admission to the ER, she was noted to have a significantly decreased H and H, but denied any symptoms of overt gastrointestinal bleeding. She underwent colonoscopy on July 14, 2018, which showed a 3 to 4 cm ulcerated fungating mass within the cecum with biopsies consistent with a colonic adenocarcinoma. At this point, this is the one of the more likely reasons why the patient may have anemia, although there is evidence of ischemic colitis in the left colon, which could contribute as well. Based on the CT scan obtained earlier today, there does not appear to be any evidence of metastatic disease and therefore the patient may be a suitable candidate for surgical excision/right hemicolectomy. However, in speaking with the patient tonight, it appears that she would like to confer with family prior to making that decision. Recommendations; 1. We would continue to trend H and H and transfuse as necessary to maintain an H and H of 7/ while inpatient. 2. Continue to monitor clinically for signs of active gastrointestinal bleeding. 3. We will continue to hold any anticoagulation for now given the evidence of an ulcerated colonic mass, although she may ultimately need restarting of her anticoagulation due to ischemic colitis in the left colon. 4. Agree with consultation of Oncology Service for possible recommendations and also obtain consultation of the General Surgery Service for possible surgical excision/right hemicolectomy. Ischemic colitis. The patient is presenting with acute onset of loss of consciousness and increased lower abdominal pain with a significant H and H noted on admission. Colonoscopy performed on July 14, 2018 showed increased mucosal erythema as well as a mottled appearance of the colonic mucosa within the distal descending, sigmoid colons, and rectum. There was also significant ulceration in this region with biopsies obtained, showing probable ischemic colitis. CT angiography was performed on July 15, 2018, which showed fairly patent celiac artery and superior mesenteric artery. However, there was some mild narrowing of the proximal portion of the inferior mesenteric artery, but good flow in the distal portions. At this point, given the dual blood supply within the rectum itself, it is unclear as to why she may be exhibiting ischemic colitis in this region, although given the extensive calcifications within the abdominal aorta, it may have been an embolic event. If the patient did not have a concurrent diagnosis of a right-sided colonic adenocarcinoma, I would consider placing the patient on anticoagulation therapy to further increase perfusion/blood flow to these areas of the colon. Recommendations; 1. Trend H and H as above. 2. We would attempt to maintain normotensive pressures on this patient and to facilitate healing of the ischemic colitis. 3. We would consider anticoagulation at a further date given the evidence of ischemic colitis, both on the endoscopy and on the pathology results. We will sign off at this time. Please call with any additional questions. Job ID: [id number]
[2018-07-15] MEDS: Morphine 4 MG/ML VIAL SLOW IVP PRN (21:04)
[2018-07-16] MEDS: Sodium Chloride 0.9% 1,000 ML IV SCH ×3 (01:35→22:24)
[2018-07-16] MEDS: Cefepime 1 GM in Sodium Chloride 0.9% 100 ML IVPB SCH ×2 (01:36→12:26)
[2018-07-16] MEDS: Morphine 4 MG/ML VIAL SLOW IVP PRN (01:36)
[2018-07-16] MEDS: Atorvastatin Calcium 20 MG TAB PO SCH (08:28)
[2018-07-16] MEDS: Lisinopril 20 MG TAB PO SCH (08:28)
[2018-07-16] MEDS: Ferrous Sulfate 325 MG TAB PO SCH ×2 (08:28→20:01)
--- NOTE | 2018-07-16 12:15 | PDOC.PN ---
- Subjective Encounter Start Date: 07/16/18 Encounter Start Time: 07:00 Pt seen for followup re: colon cancer. Says she feels okay. - Objective Resuscitation Status - Order Detail: 07/11/18 02:45 Resuscitation Status Routine Resuscitation Status: DNAR: NO Resuscitation Discussed with: patient and daughter ANDREA Reviewed: Yes Vital Signs & Weight: Vital Signs (12 hours) Temp Pulse Resp BP Pulse Ox 07/16/18 11:38 98.6 F 88 16 174/74 H 94 L 07/16/18 07:23 98.4 F 96 16 172/77 H 94 L 07/16/18 03:15 97.4 F L 94 20 150/65 H 94 L Weight Weight 146 lb 6.4 oz I&O: 07/15/18 07/16/18 07/17/18 06:59 06:59 06:59 Intake Total 1999 2420 Balance 1999 242 Result Diagrams: 07/15/18 06:58 07/15/18 12:02 EKG Reviewed by me: Yes (tele: NSR) Phys Exam - Physical Examination Constitutional: NAD HEENT: moist MMs Neck: supple Respiratory: clear to auscultation bilateral Cardiovascular: RRR Gastrointestinal: soft Neurological: moves all 4 limbs Psychiatric: normal affect Dx/Plan (1) Colon cancer Code(s): C18.9 - MALIGNANT NEOPLASM OF COLON, UNSPECIFIED Status: Acute Comment: await oncology input (2) RADHA (acute kidney injury) Code(s): N17.9 - ACUTE KIDNEY FAILURE, UNSPECIFIED Status: Acute Comment: Improving, present on admission (3) Hypokalemia Code(s): E87.6 - HYPOKALEMIA Status: Acute Comment: potassium replaced yesterday (4) HTN (hypertension) Code(s): I10 - ESSENTIAL (PRIMARY) HYPERTENSION Status: Chronic Comment: PRN IV hydralazine (5) Dyslipidemia Code(s): E78.5 - HYPERLIPIDEMIA, UNSPECIFIED Status: Chronic Comment: continue statin - Plan * . Review of Systems - Review of Systems Respiratory: negative: Cough, Shortness of Breath, SOB with Excertion, Pleuritic Pain, Wheezing Cardiovascular: negative: chest pain, palpitations, orthopnea, paroxysmal nocturnal dyspnea, edema, light headedness - Medications/Allergies Allergies/Adverse Reactions: Allergies Allergy/AdvReac Type Severity Reaction Status Date / Time codeine Allergy Verified 07/11/18 15:17 Penicillins Allergy Verified 07/11/18 15:17 Sulfa (Sulfonamide Allergy Verified 07/11/18 15:17 Antibiotics) Medications: Current Medications Acetaminophen (Tylenol) 650 mg PO Q4H PRN PRN Reason: Headache/Fever/Mild Pain (1-3) Last Admin: 07/11/18 17:13 Dose: 650 mg Atorvastatin Calcium (Lipitor) 20 mg PO DAILY [facility] Last Admin: 07/16/18 08:28 Dose: 20 mg Ferrous Sulfate (Feosol) 325 mg PO BID [facility] Last Admin: 07/16/18 08:28 Dose: 325 mg Sodium Chloride (Normal Saline 0.9%) 1,000 mls @ 100 mls/hr IV .Q10H [facility] Last Admin: 07/16/18 11:40 Dose: 1,000 mls Cefepime HCl 1 gm/ Sodium (Chloride) 100 mls @ 200 mls/hr IVPB 0100,1300 [facility] Last Admin: 07/16/18 01:36 Dose: 100 mls Lisinopril (Zestril) 20 mg PO DAILY [facility] Last Admin: 07/16/18 08:28 Dose: 20 mg Morphine Sulfate (Morphine) 2 mg SLOW IVP Q4H PRN PRN Reason: Severe Pain (7-10) Last Admin: 07/16/18 01:36 Dose: 2 mg Ondansetron HCl (Zofran) 4 mg IVP Q4H PRN PRN Reason: Nausea/Vomiting Last Admin: 07/12/18 14:45 Dose: 4 mg Pantoprazole Sodium (Protonix) 40 mg PO DAILY [facility] Last Admin: 07/16/18 08:28 Dose: 40 mg Polyethylene Glycol/Electrolytes (Golytely) 4,000 ml PO WILLCALL [facility] Sodium Chloride (Flush - Normal Saline) 10 ml IVF Q12HR [facility] Last Admin: 07/16/18 08:29 Dose: 10 ml Sodium Chloride (Flush - Normal Saline) 10 ml IVF PRN PRN PRN Reason: Saline Flush Last Admin: 07/12/18 13:59 Dose: 10 ml
[2018-07-16] MEDS ORDERED: hydrALAZINE 20 MG/ML VIAL SLOW IVP SCH (12:30)
[2018-07-16] MEDS: Benzonatate 100 MG CAP PO PRN (13:44)
[2018-07-16] MEDS: Acetaminophen 325 MG TAB PO PRN (17:12)
--- NOTE | 2018-07-16 22:49 | CON ---
DATE OF CONSULTATION: REASON FOR CONSULT: Colon cancer. HISTORY OF PRESENT ILLNESS: Ms. Curran is a pleasant 83-year-old female who presented to the emergency room on July 10 after a syncopal episode with loss of consciousness. Her hemoglobin in the emergency room was noted to be 8.8. She admits to having occasional dark stool and weight loss over the last several weeks. She had a brain CT, which showed no acute process and a cervical spine CT, which showed osteoporotic changes. GI was consulted and an abdominal pelvis CT was performed, which showed mural thickening involving the rectum, sigmoid colon and likely the ascending colon. There was no evidence of bowel obstruction. She then underwent a colonoscopy and EGD. There was a 3-4 cm fungating and ulcerated mass at the cecum. She also had circumferential mucosal erythema from the rectum to 40 cm past the anal verge. It was consistent with ischemic colitis. Biopsy of the cecal mass returned invasive moderately differentiated adenocarcinoma. We were asked to see the patient regarding treatment options. History was obtained from the patient, patient's daughter and review of medical records. PAST MEDICAL HISTORY: 1. Hypertension. 2. Hyperlipidemia. 3. CVA with residual left-sided weakness. PAST SURGICAL HISTORY: 1. Hysterectomy. 2. Tonsillectomy. ALLERGIES: 1. PENICILLIN. 2. SULFA. 3. CODEINE. HOME MEDICATIONS: 1. Aspirin 81 mg daily. 2. Avastin 20 mg daily. 3. Ferrous sulfate 325 mg b.i.d. 4. Lisinopril 20 mg daily. 5. Protonix 40 mg daily. FAMILY HISTORY: No history of colon cancer. SOCIAL HISTORY: , lives with her spouse. No alcohol, tobacco, or illicit drug use. REVIEW OF SYSTEMS: CONSTITUTIONAL: No fever, chills, night sweats. EYES: No blurred or double vision. ENT: No pain, hoarseness, sore throat, or dysphagia. CARDIOVASCULAR: No chest pain. RESPIRATORY: No shortness of breath, cough or hoarseness. GI: No nausea, vomiting, diarrhea, constipation, or abdominal pain. : No dysuria, hematuria. MUSCULOSKELETAL: No joint or back pain. SKIN: No rash or pruritus. HEMATOLOGICAL: No bruising, bleeding or clotting. NEUROLOGICAL: Positive for left-sided weakness. PHYSICAL EXAMINATION: VITAL SIGNS: Temperature is 98.6, pulse is 88, respiratory rate 16, BP is 174/ 74. She is 94% on room air. GENERAL: Well-developed, well-nourished female in no acute distress. HEENT: Normocephalic, atraumatic. Pupils equal and reactive to light. NECK: Supple. CV: Regular rate and rhythm. LUNGS: Clear anterior. ABDOMEN: Soft, nontender. Bowel sounds are positive. EXTREMITIES: No clubbing, cyanosis, or edema. SKIN: No rash. HEMATOLOGICAL: No petechiae or purpura. EXTREMITIES: She does have scattered bruising on her upper extremities. NEUROLOGICAL: The patient is able to move all extremities. PSYCHIATRIC: The patient is alert and oriented to person, place, and time. She answers questions appropriately. PERTINENT LABS AND X-RAYS: Current WBCs 13.7, hemoglobin 8.6, hematocrit 28.6, platelet count is 247,000, 74% neutrophils, 9% lymphocytes, 10% monocytes. PT is 14, INR is 1.1, PTT is 26.3. Sodium is 141, potassium 2.8, chloride 113, CO2 16 , BUN is 8, creatinine 0.73, calcium is 8.0, total bilirubin is 0.3, AST is 18, ALT is 12, alkaline phosphatase is 135. Serum total protein is 6.3, albumin 3.6, globulin 2.7. CEA is 143. Radiology per HPI. CT angio showed bilateral pleural effusions, patent celiac superior mesenteric and inferior mesenteric arteries. ASSESSMENT: 1. Adenocarcinoma of a cecal mass. 2. Anemia, likely secondary to gastrointestinal bleed. 3. Syncopal episode. 4. Ischemic colitis. 5. Hypokalemia, repleted. DISCUSSION: The case was discussed with Dr. Denise and Dr. Ireland. The patient 's daughter was called to discuss patient's disease. She was angry and immediately expressed her dissatisfaction with the providers caring for her mother. She stated that she was the POA and was angry her mother was informed yesterday that she had cancer without her presence. She insisted on meeting with all providers at a designated time. I suggested she ask the nurse to coordinate. I then informed the daughter that the patient has no evidence of metastatic disease on current scans. Per NCCN guidelines, the recommendation would be a surgical opinion for resection. I stated that I was not able to give her a stage as pathology from the resection is required for full staging. However, based on the current scans, the patient may need no further intervention other than resection. This was discussed in detail with the patient's daughter. All questions were answered. I informed the patient that I would consult a General Surgeon and have them notify her when he plans to see the patient. I stated I would ask the Surgeon to call the daughter if she was not present. I instructed the daughter that I am available to meet with her tomorrow morning. Further recommendations will be determined after the surgeon has seen the patient. Thank you for the consult. Job ID: [id number] MTDD
--- NOTE | 2018-07-16 23:12 | HP ---
HISTORY OF PRESENT ILLNESS: Jonny Curran is an 83-year-old female with a previous stroke, with right hemiparesis, lives in [place] with her who is 90 years old. The patient is seen today and no family is present. I had been told that the family had been very angry at healthcare providers. I was asked to see her regarding her right colon cancer. The patient presented with weakness at home and a syncopal episode and was evaluated, noted to be anemic, has been given 1 unit of blood for hemoglobin 8.5, but is now 8.6. The patient's blood pressure in the hospital has been hypertensive, 172/77. She has had multiple studies since admission including a chest x-ray which was unremarkable, brain CAT scan with no acute changes, cervical spine CAT scan with no acute changes, carotid Doppler study, no significant hemodynamic lesion, abdomen and pelvis CAT scan with some nonspecific bowel thickening in left colon, and a CTA that was normal. The patient was seen by Gastroenterology, underwent colonoscopy revealing ischemic colitis changes in the left colon and a cecal tumor. Pathology revealed adenocarcinoma. CAT scan of the abdomen and a CEA did not reveal any hepatic metastasis. I ordered a CEA level, it was 1.43. The patient has been hypokalemic and she has been replaced. She has an echocardiogram with ejection fraction of 50% to 55%, normal left atrium, LV normal, no significant valvular disease. HOME MEDICATIONS: Include ferrous sulfate, lisinopril, atorvastatin, aspirin, Protonix. HABITS: Tobacco, none for 10-15 years, abused prior to that. Alcohol, none. Medications as noted above. PAST SURGICAL HISTORY: Hysterectomy, appendectomy, tonsillectomy. PAST MEDICAL HISTORY: Tobacco use, past stroke with the right hemiparesis. She reports she ambulates unassisted at home. ITZ Parker, nurse practitioner, Oncology asked me to see her regarding her right colon cancer and Gabby Rowland was consulted. PHYSICAL EXAMINATION: VITAL SIGNS: Height 5 feet 2 inches, weight 146 pounds, 26 BMI, temperature 98.6, pulse 91, blood pressure 115/61, previously today 174/74. HEAD, EARS, EYES, NOSE AND THROAT: Unremarkable. LUNGS: Clear to auscultation. CARDIAC: Regular rate and rhythm without murmur or gallop. ABDOMEN: Slightly obese, perhaps slightly tympanitic. EXTREMITIES: Unremarkable. LABORATORY DATA: BUN 8, creatinine 0.73. CEA level 1.43. Potassium 2.8, replaced and now 3.2, sodium 141. Hemoglobin 8.6 after a unit of blood, white count 13.7. ASSESSMENT AND PLAN: Right colon cancer. The patient is a DNR. When I visited with the patient, I took a history and examined her and did not talk to the patient regarding her diagnosis and treatment. I immediately called the daughter in [place] per telephone and had a conversation with her. The daughter was very irate that I would even go see her mother without family present. I had been notified of the patient's presence in the hospital and asked to see her about 2 hours earlier by Gabby Rowland, nurse practitioner. I was told that the family was upset that anybody would see the patient without the family present, but the family has not been present. I then asked the patient's nurse to notify the family that I would be in to see her at an hour and the nurses were told that the patient's daughter would be here in an hour. When the patient's daughter stated that be here in an hour, the family again expressed anger and stated that they would probably transfer to another hospital and when told that I would see her, they said "whatever." Based on that conversation, I elected to see the patient and not have a conversation with her about her care. Instead, I talked to the family regarding informed recommendation. However, when I talked to the daughter per telephone, the daughter became very angry again. I told the patient's daughter that with the patient's ischemic colitis changes currently that I would recommend treating her with nutritional supplements, iron and stool softeners, and recommend laparoscopic right colectomy in the next week or two. The daughter, however, stated that she wanted to take the patient out of this hospital to another hospital. The daughter was very angry and I told the daughter that I would only see the patient again if invited and I would not see her again. I did, however, recommend to the daughter that they consider a cardiac stress test prior to surgery, but I initially ordered a cardiac consult, but canceled that. At this point, I will not see the patient again unless invited and requested by family. If I could be of further assistance, please feel free to call. Job ID: [id number]
[2018-07-17] MEDS: Cefepime 1 GM in Sodium Chloride 0.9% 100 ML IVPB SCH ×2 (00:01→13:37)
[2018-07-17] MEDS: Ferrous Sulfate 325 MG TAB PO SCH ×2 (08:24→20:41)
[2018-07-17] MEDS: Atorvastatin Calcium 20 MG TAB PO SCH (08:24)
[2018-07-17] MEDS: Lisinopril 20 MG TAB PO SCH (08:25)
[2018-07-17] MEDS: Sodium Chloride 0.9% 1,000 ML IV SCH (08:26)
--- NOTE | 2018-07-17 08:37 | PDOC.PN ---
- Subjective Encounter Start Date: 07/17/18 Encounter Start Time: 08:33 Subjective: Seen and examined--interraction between the family and the surgeon noted -: Wheezing - Objective Resuscitation Status - Order Detail: 07/11/18 02:45 Resuscitation Status Routine Resuscitation Status: DNAR: NO Resuscitation Discussed with: patient and daughter Vital Signs & Weight: Vital Signs (12 hours) Temp Pulse Resp BP Pulse Ox 07/17/18 08:00 98.4 F 93 20 157/70 H 96 07/17/18 04:00 97.9 F 92 22 H 156/70 H 94 L Weight Weight 146 lb 6.4 oz I&O: 07/16/18 07/17/18 07/18/18 06:59 06:59 06:59 Intake Total 2420 2900 Balance 2420 2900 Result Diagrams: 07/15/18 06:58 07/15/18 12:02 Phys Exam - Physical Examination Constitutional: NAD HEENT: PERRLA, moist MMs, sclera anicteric, TM's clear Neck: no nodes, no JVD, supple, full ROM Respiratory: no wheezing, no rales, no rhonchi, clear to auscultation bilateral Cardiovascular: RRR, no significant murmur, no rub Gastrointestinal: soft, non-tender, no distention, positive bowel sounds Musculoskeletal: pulses present Dx/Plan (1) Ischemic colitis Code(s): K55.9 - VASCULAR DISORDER OF INTESTINE, UNSPECIFIED Status: Acute (2) RADHA (acute kidney injury) Code(s): N17.9 - ACUTE KIDNEY FAILURE, UNSPECIFIED Status: Acute Comment: Improving, present on admission (3) Colon cancer Code(s): C18.9 - MALIGNANT NEOPLASM OF COLON, UNSPECIFIED Status: Acute Comment: await oncology input (4) Hypokalemia Code(s): E87.6 - HYPOKALEMIA Status: Acute Comment: potassium replaced yesterday (5) Dyslipidemia Code(s): E78.5 - HYPERLIPIDEMIA, UNSPECIFIED Status: Chronic Comment: continue statin (6) HTN (hypertension) Code(s): I10 - ESSENTIAL (PRIMARY) HYPERTENSION Status: Chronic Comment: PRN IV hydralazine - Plan continue antibiotics, 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
[2018-07-17 09:51] LABS: #Eosinphils 0.7 thou/uL (0.0-0.7); #Lymphocytes 1.2 thou/uL (1.20-3.40); #Monocytes 1.7 thou/uL (0.11-0.59); #Neutrophils 9.1 thou/uL (1.40-6.50); %Eosinophils 5.8 % (0.0-10.0); %Lymphocytes 9.7 % (21.0-51.0); %Monocytes 12.9 % (0.0-10.0); %Neutrophils 71.6 % (42.0-75.0); Hemoglobin 8.8 g/dL (12.0-16.0); Mean Corpuscular Hemoglobin 26.6 pg (27.0-31.0); Mean Corpuscular Volume 88.8 fL (78.0-98.0); Mean Platelet Volume 8.7 fL (7.4-10.4); Platelet Count 294 thou/uL (130-400); RBC Distribution Width 16.2 % (11.5-14.5); Red Blood Cell (RBC) Count 3.29 mill/uL (4.20-5.40); White Blood Cell (WBC) Count 12.8 thou/uL (4.8-10.8)
[2018-07-17 10:03] LABS: Anion Gap 11 mmol/L (10-20); BUN (Urea Nitrogen) 7 mg/dL (9.8-20.1); Calc. Creatinine Clearance 65 mL/min (70-130); Calcium 7.9 mg/dL (7.8-10.44); Carbon Dioxide 21 mmol/L (23-31); Chloride 108 mmol/L (98-107); Estimated GFR-MDRD 82; Glucose 147 mg/dL (83-110); Potassium 3.2 mmol/L (3.5-5.1); Sodium 137 mmol/L (136-145)
[2018-07-17] MEDS: Benzonatate 100 MG CAP PO PRN (10:12)
--- NOTE | 2018-07-17 12:43 | CON ---
DATE OF CONSULTATION: 07/17/2018 REASON FOR CONSULTATION: Colon cancer. Please refer to full consult note dictated by Gabby Rowland, nurse practitioner, July 16, 2018. In brief, Ms. Curran is an 83-year-old female, who presented to the hospital after an episode of syncope and found to be anemic and is admitted to occasional dark stools. CT scan showed mural thickening involving the rectum, sigmoid colon and likely ascending colon and so the patient was seen by Dr. Cruz and underwent a colonoscopy and EGD and was found to have a 3 or 4 cm fungating ulcerated mass at the level of the cecum, which was biopsied and showed moderately differentiated adenocarcinoma. Oncology was consulted in addition to Dr. Murphy for treatment options. The patient herself is alert and oriented, however, does not want to know anything about her diagnosis and only wants the physicians to speak with her daughter. The nurse practitioner along with Dr. Murphy have spoken to the daughter, who has been very irate about her mother's treatment and that any physician has seen her without the daughter in the room, however, the daughter has not been there. From an oncologic standpoint, there is no evidence of metastatic disease at this time and definitive treatment is surgical resection. This has been offered by Dr. Murphy, however, the patient's daughter has declined at this time and is considering transferring the patient to a new hospital. Final staging and recommendations on chemotherapy would be dependent on final pathology results from the surgical specimen. At this time, there is no intervention recommended from a medical oncology standpoint and recommend followup with either Dr. Murphy or another surgeon at another hospital if the patient is transferred for definitive treatment. We will be available if any additional assistance is needed. Thank you for this consult. Job ID: [id number]
[2018-07-17] MEDS ORDERED: Potassium Chloride 20 MEQ TAB PO SCH (18:45)
[2018-07-17] MEDS: Acetaminophen 325 MG TAB PO PRN (20:41)
[2018-07-18] MEDS: Cefepime 1 GM in Sodium Chloride 0.9% 100 ML IVPB SCH ×2 (01:03→16:42)
[2018-07-18 06:57] LABS: Anion Gap 10 mmol/L (10-20); BUN (Urea Nitrogen) 7 mg/dL (9.8-20.1); Calc. Creatinine Clearance 67 mL/min (70-130); Carbon Dioxide 23 mmol/L (23-31); Chloride 108 mmol/L (98-107); Estimated GFR-MDRD 87; Glucose 97 mg/dL (83-110); Potassium 3.4 mmol/L (3.5-5.1); Sodium 138 mmol/L (136-145)
[2018-07-18 08:11] LABS: Band 15 % (5-11); Eosinophils 4 % (0-10); Hemoglobin 8.4 g/dL (12.0-16.0); Hypochromia SLIGHT = 6-15 cells (100X) (0-5/hpf); Lymphocytes 8 % (21-51); MDiff Complete? YES; Mean Corpuscular HGB CONC 30.6 g/dL (32.0-36.0); Mean Corpuscular Hemoglobin 26.8 pg (27.0-31.0); Mean Corpuscular Volume 87.6 fL (78.0-98.0); Mean Platelet Volume 8.6 fL (7.4-10.4); Monocytes 16 % (0-10); Neutrophil 55 % (42-75); Platelet Count 308 thou/uL (130-400); Platelet Morphology Comment Appears Adequate; Polychromasia SLIGHT = 2-3 cells (100X) (0-2/hpf); RBC Distribution Width 16.1 % (11.5-14.5); Reactive Lymphocytes 2 % (0-10); Red Blood Cell (RBC) Count 3.15 mill/uL (4.20-5.40); White Blood Cell (WBC) Count 12.5 thou/uL (4.8-10.8)
--- NOTE | 2018-07-18 08:41 | PDOC.PN ---
- Subjective Encounter Start Date: 07/18/18 Encounter Start Time: 08:40 Subjective: Seen and examined -a little fluid overloaded - Objective Resuscitation Status - Order Detail: 07/11/18 02:45 Resuscitation Status Routine Resuscitation Status: DNAR: NO Resuscitation Discussed with: patient and daughter Vital Signs & Weight: Vital Signs (12 hours) Temp Pulse Resp BP Pulse Ox 07/18/18 07:44 99.1 F 92 18 175/79 H 93 L 07/18/18 04:00 99.4 F 90 18 155/67 H 94 L Weight Weight 145 lb 2 oz I&O: 07/17/18 07/18/18 07/19/18 06:59 06:59 06:59 Intake Total 2900 240 Output Total 450 Balance 2900 -210 Result Diagrams: 07/18/18 05:29 07/18/18 05:29 Phys Exam - Physical Examination Constitutional: NAD HEENT: PERRLA, moist MMs, sclera anicteric, TM's clear Neck: no nodes, no JVD, supple, full ROM Respiratory: no wheezing, no rales, no rhonchi Cardiovascular: RRR, no significant murmur, no rub Gastrointestinal: soft, non-tender, no distention, positive bowel sounds Musculoskeletal: pulses present, edema present Dx/Plan (1) Ischemic colitis Code(s): K55.9 - VASCULAR DISORDER OF INTESTINE, UNSPECIFIED Status: Acute (2) RADHA (acute kidney injury) Code(s): N17.9 - ACUTE KIDNEY FAILURE, UNSPECIFIED Status: Acute Comment: Improving, present on admission (3) Colon cancer Code(s): C18.9 - MALIGNANT NEOPLASM OF COLON, UNSPECIFIED Status: Acute Comment: await oncology input (4) Hypokalemia Code(s): E87.6 - HYPOKALEMIA Status: Acute Comment: potassium replaced yesterday (5) Dyslipidemia Code(s): E78.5 - HYPERLIPIDEMIA, UNSPECIFIED Status: Chronic Comment: continue statin (6) HTN (hypertension) Code(s): I10 - ESSENTIAL (PRIMARY) HYPERTENSION Status: Chronic Comment: PRN IV hydralazine (7) Hypervolemia Code(s): E87.70 - FLUID OVERLOAD, UNSPECIFIED Status: Acute - Plan plan discussed w/ family, PT/OT, rn social services, respiratory therapy Diuresis -: Replete potassium -: Dispo planning * .
[2018-07-18] MEDS ORDERED: Furosemide 20 MG/2 ML VIAL SLOW IVP SCH (08:45)
[2018-07-18] MEDS: Atorvastatin Calcium 20 MG TAB PO SCH (10:22)
[2018-07-18] MEDS: Lisinopril 20 MG TAB PO SCH (10:23)
[2018-07-18] MEDS: Ferrous Sulfate 325 MG TAB PO SCH ×2 (10:23→20:43)
[2018-07-18] MEDS: Furosemide 40 MG/4 ML VIAL SLOW IVP SCH (16:42)
[2018-07-18] MEDS: Potassium Chloride 20 MEQ TAB PO SCH (16:43)
[2018-07-18] MEDS: Acetaminophen 325 MG TAB PO PRN (20:43)
[2018-07-19] MEDS: Cefepime 1 GM in Sodium Chloride 0.9% 100 ML IVPB SCH ×2 (01:46→14:54)
[2018-07-19] MEDS: Furosemide 40 MG/4 ML VIAL SLOW IVP SCH ×2 (04:56→14:54)
[2018-07-19 07:20] LABS: #Basophils 0.1 thou/uL (0.0-0.2); #Eosinphils 0.5 thou/uL (0.0-0.7); #Lymphocytes 1.2 thou/uL (1.20-3.40); #Monocytes 1.7 thou/uL (0.11-0.59); #Neutrophils 8.4 thou/uL (1.40-6.50); %Basophils 0.4 % (0.0-1.0); %Lymphocytes 10.3 % (21.0-51.0); %Monocytes 14.5 % (0.0-10.0); %Neutrophils 70.7 % (42.0-75.0); Mean Corpuscular HGB CONC 30.2 g/dL (32.0-36.0); Mean Corpuscular Volume 86.2 fL (78.0-98.0); Mean Platelet Volume 8.4 fL (7.4-10.4); Platelet Count 370 thou/uL (130-400); RBC Distribution Width 16.3 % (11.5-14.5); Red Blood Cell (RBC) Count 3.46 mill/uL (4.20-5.40); White Blood Cell (WBC) Count 11.9 thou/uL (4.8-10.8)
[2018-07-19 07:30] LABS: Anion Gap 14 mmol/L (10-20); BUN (Urea Nitrogen) 7 mg/dL (9.8-20.1); Calc. Creatinine Clearance 62 mL/min (70-130); Calcium 8.6 mg/dL (7.8-10.44); Carbon Dioxide 28 mmol/L (23-31); Chloride 100 mmol/L (98-107); Estimated GFR-MDRD 75; Glucose 124 mg/dL (83-110); Magnesium 1.2 mg/dL (1.6-2.6); Potassium 3.1 mmol/L (3.5-5.1); Sodium 139 mmol/L (136-145)
[2018-07-19] MEDS: Lisinopril 20 MG TAB PO SCH (09:23)
[2018-07-19] MEDS: Ferrous Sulfate 325 MG TAB PO SCH ×2 (09:24→18:46)
[2018-07-19] MEDS: Atorvastatin Calcium 20 MG TAB PO SCH (09:24)
[2018-07-19] MEDS: Potassium Chloride 20 MEQ TAB PO SCH ×3 (09:25→20:58)
--- NOTE | 2018-07-19 16:53 | PRG ---
DATE OF SERVICE: 07/19/2018 SUBJECTIVE: The patient is seen and examined at bedside. She is not offering any complaints. OBJECTIVE: VITAL SIGNS: Blood pressure is 138/63, pulse is 85, temperature is 98.5, respiratory rate is 20, and O2 saturation is 91% to 92% on room air. HEENT: Head is atraumatic and normocephalic. Eyes, PERRLA. Sclerae are nonicteric. Conjunctivae palish. Oral mucosa is moist. NECK: Supple. LUNGS: Slightly diminished breath sounds at both bases. HEART: S1 and S2, normal. No S3. No S4. ABDOMEN: Soft, nontender. Bowel sounds are present. No organomegaly. EXTREMITIES: No clubbing, cyanosis, or edema. NEUROLOGICAL: She follows my commands. She moves her all four extremities. There are no any motor deficits. LABORATORY DATA: Showed white count of 11.9, hemoglobin 9.0, hematocrit 29.8, and platelet count is 370. Sodium of 139, potassium 3.1, chloride 100, CO2 of 28, BUN 7, creatinine 0.74, glucose 124, and magnesium 1.2. IMPRESSION: 1. Ischemic colitis. 2. Colon cancer. 3. Hypokalemia/hypomagnesemia. 4. Dyslipidemia. 5. Hypertension. 6. Hypervolemia with bilateral pleural effusion. PLAN: I was waiting for the daughter to come and see the patient with the daughter, but she is not here, so I decided to see her without discussing anything with her and I supplement her with 40 mEq of KCl. We are going to supplement her with two doses of magnesium sulfate 2 g now, then 2 g in the next 6 hours. Also, we are going to stop her cefepime waiting for daughter's decision regarding further management of the patient's cancer. We will try to reach her. Job ID: [id number]
[2018-07-19] MEDS: Magnesium 2 GM/50 ML 2 GM in Premix Bag 1 BAG IVPB SCH ×2 (18:47→20:57)
[2018-07-20] MEDS: Acetaminophen 325 MG TAB PO PRN ×2 (01:02→07:58)
[2018-07-20 05:51] LABS: #Basophils 0.1 thou/uL (0.0-0.2); #Eosinphils 0.3 thou/uL (0.0-0.7); #Lymphocytes 1.4 thou/uL (1.20-3.40); #Neutrophils 10.7 thou/uL (1.40-6.50); %Basophils 0.5 % (0.0-1.0); %Eosinophils 1.9 % (0.0-10.0); %Lymphocytes 9.8 % (21.0-51.0); %Monocytes 13.7 % (0.0-10.0); %Neutrophils 74.1 % (42.0-75.0); Hemoglobin 8.3 g/dL (12.0-16.0); Mean Corpuscular HGB CONC 29.5 g/dL (32.0-36.0); Mean Corpuscular Hemoglobin 25.3 pg (27.0-31.0); Mean Corpuscular Volume 85.9 fL (78.0-98.0); Mean Platelet Volume 8.4 fL (7.4-10.4); Platelet Count 408 thou/uL (130-400); RBC Distribution Width 16.3 % (11.5-14.5); White Blood Cell (WBC) Count 14.5 thou/uL (4.8-10.8)
[2018-07-20 06:14] LABS: Anion Gap 18 mmol/L (10-20); BUN (Urea Nitrogen) 8 mg/dL (9.8-20.1); Calc. Creatinine Clearance 62 mL/min (70-130); Calcium 8.3 mg/dL (7.8-10.44); Carbon Dioxide 26 mmol/L (23-31); Chloride 97 mmol/L (98-107); Estimated GFR-MDRD 75; Glucose 118 mg/dL (83-110); Potassium 4.4 mmol/L (3.5-5.1); Sodium 137 mmol/L (136-145)
[2018-07-20] MEDS: Furosemide 40 MG/4 ML VIAL SLOW IVP SCH ×2 (06:35→14:23)
[2018-07-20] MEDS: Lisinopril 20 MG TAB PO SCH (07:54)
[2018-07-20] MEDS: Atorvastatin Calcium 20 MG TAB PO SCH (07:55)
[2018-07-20] MEDS: Ferrous Sulfate 325 MG TAB PO SCH ×2 (07:55→18:16)
--- NOTE | 2018-07-20 14:14 | PRG ---
DATE OF SERVICE: 07/20/2018 SUBJECTIVE: The patient is seen and examined at the bedside. She is doing well. She does not have much complaints to offer. OBJECTIVE: VITAL SIGNS: Blood pressure is 114/53, pulse is 79, temperature is 97.9, respirations 18, O2 saturation 92% on room air. HEENT: Head is atraumatic and normocephalic. Eyes are PERRLA. Sclerae are nonicteric. Oral mucosa is moist. NECK: Supple. LUNGS. Clear. HEART: S1 and S2, normal. ABDOMEN: Soft, nontender. Bowel sounds are present. No organomegaly. EXTREMITIES: No clubbing, cyanosis, or edema. NEUROLOGICAL: She is alert and oriented x2. There is no any motor deficit. Cranial nerves are intact. LABORATORY DATA: White count of 14.5, hemoglobin 8.3, hematocrit 28.3, and platelet count 408. Sodium of 137, potassium 4.4, chloride 97, CO2 of 26, BUN 6, creatinine 0.74, and magnesium 1.2 that is from yesterday. IMPRESSION: 1. Ischemic colitis, improved. 2. Colon cancer. 3. Hypokalemia/hypomagnesemia, replaced. 4. Dyslipidemia. 5. Hypertension. 6. Hypervolemia with bilateral pleural effusion. PLAN: Plan is to switch her to oral Lasix. I reviewed the echocardiogram results with print decorator, and there is no evidence of any significant heart issue causing heart failure. It was discussed with Dr. Sarabia, who is refrigeration lead for Dr. Denise this weekend, and he will meet with the family and answer their questions regarding next step in terms of colon cancer management, but the family was told that the patient needs to have a surgery in order to get more information on what kind of treatment we can offer. Job ID: [id number]
[2018-07-21] MEDS: Acetaminophen 325 MG TAB PO PRN ×2 (01:57→20:03)
[2018-07-21] MEDS: Ferrous Sulfate 325 MG TAB PO SCH ×2 (08:06→16:50)
[2018-07-21] MEDS: Lisinopril 20 MG TAB PO SCH (08:07)
[2018-07-21] MEDS: Atorvastatin Calcium 20 MG TAB PO SCH (08:07)
--- NOTE | 2018-07-21 09:20 | RAD ---
CHEST ONE VIEW: Indication: Pleural effusion. Comparison: 07-10-18 FINDINGS: Skin fold overlies the left lower hemithorax. Tiny bilateral pleural effusions are suspected. Heart s ize is within normal limits. Pulmonary vasculature is within normal limits. Chronic lung changes are stable. Chronic osseous changes are stable. IMPRESSION: Findings suspicious for tiny bilateral pleural effusions, smaller than seen on CTA examination dated 07-15-18. POS: [facility]
--- NOTE | 2018-07-21 13:39 | PRG ---
DATE OF SERVICE: 07/21/2018 SUBJECTIVE: The patient is seen and examined at bedside. Apparently, we had contact with the daughter who is making decision about the patient's healthcare needs. She wants to get PT for her mother as soon as she is able to be transferred home. She will ask for the discharge. She wants to take her to some other oncologist for a 2nd opinion on her colon mass. OBJECTIVE: VITAL SIGNS: Blood pressure is 125/60, pulse is 87, temperature is 98.8, respiratory rate is 18, O2 saturation is 91% on room air. HEENT: Her head is atraumatic and normocephalic. Eyes are PERRLA. Sclerae nonicteric. Oral mucosa is moist. NECK: Supple. LUNGS: Clear. HEART: S1, S2 normal. No S3. No S4. ABDOMEN: Soft, nontender, nondistended. EXTREMITIES: 1+ peripheral edema similar bilaterally. NEUROLOGICAL: She follows my commands. LABORATORY DATA: None today. DIAGNOSTIC DATA: Chest x-ray showed tiny bilateral pleural effusion. IMPRESSION: 1. Ischemic colitis, improved. 2. Colon cancer. 3. Hypokalemia/hypomagnesemia, status post replacement. 4. Dyslipidemia. 5. Hypertension. 6. Hypervolemia with bilateral pleural effusion, status post diuresis and improvement. DISCUSSION: As mentioned above, the daughter does not want us to get any intervention done regarding her mother's colon cancer. She wants to get PT and get her strength back to the point that she can be transferred and she will go to another oncologist for 2nd opinion on her colon cancer. Job ID: [id number]
[2018-07-22] MEDS: Ferrous Sulfate 325 MG TAB PO SCH ×2 (08:38→16:23)
[2018-07-22] MEDS: Lisinopril 20 MG TAB PO SCH (08:39)
[2018-07-22] MEDS: Atorvastatin Calcium 20 MG TAB PO SCH (08:40)
--- NOTE | 2018-07-22 14:01 | PDOC.PN ---
- Subjective Encounter Start Date: 07/22/18 Encounter Start Time: 13:59 Ms. Curran was seen today in follow-up of newly diagnoses colon cancer. She is sitting up in bed, and recently finished lunch. She denies any abdominal pain, or nausea or vomiting. - Objective Resuscitation Status - Order Detail: 07/11/18 02:45 Resuscitation Status Routine Resuscitation Status: DNAR: NO Resuscitation Discussed with: patient and daughter MAR Reviewed: Yes Vital Signs & Weight: Vital Signs (12 hours) Temp Pulse Resp BP BP BP Pulse Ox 07/22/18 12:00 98.4 F 84 16 114/52 L 92 L 07/22/18 08:39 133/60 07/22/18 07:57 93 L 07/22/18 07:32 99.0 F 82 16 133/60 93 L 07/22/18 04:00 98.5 F 81 18 153/68 H 90 L Weight Admit Weight 146 lb 6.4 oz Weight 142 lb 3 oz I&O: 07/21/18 07/22/18 07/23/18 06:59 06:59 06:59 Intake Total 925 730 Balance 925 730 Result Diagrams: 07/20/18 04:28 07/20/18 04:28 Phys Exam - Physical Examination HEENT: PERRLA Respiratory: no wheezing, no rales, no rhonchi, clear to auscultation bilateral Cardiovascular: RRR, no significant murmur, no rub Gastrointestinal: soft, non-tender, no distention, positive bowel sounds Musculoskeletal: no edema, pulses present Dx/Plan (1) Colon cancer Code(s): C18.9 - MALIGNANT NEOPLASM OF COLON, UNSPECIFIED Status: Acute Comment: await oncology input (2) Ischemic colitis Code(s): K55.9 - VASCULAR DISORDER OF INTESTINE, UNSPECIFIED Status: Acute (3) Dyslipidemia Code(s): E78.5 - HYPERLIPIDEMIA, UNSPECIFIED Status: Chronic Comment: continue statin (4) HTN (hypertension) Code(s): I10 - ESSENTIAL (PRIMARY) HYPERTENSION Status: Chronic Comment: PRN IV hydralazine - Plan * Recently Diagnosed Colon cancer- chart reviewed patient's daughter wishes to obtain an second opinion regarding the treatment of the cancer. It appears she has refused staging work-up at this time, and there is a sign posted in the patient's room, to speak with her before ordering any tests. ( It is noted that the patient's daughter was not present when I saw the patient) * HTN- blood pressure is stable * Ischemic colitis- stable.
--- NOTE | 2018-07-22 16:47 | RAD ---
LEFT SHOULDER THREE VIEWS: HISTORY: Fall. Left shoulder pain. FINDINGS: There are degenerative changes in the acromioclavicular and glenohumeral joints. No acute fracture o r dislocation is identified. POS: [facility]
--- NOTE | 2018-07-22 20:01 | EKG ---
Test Reason : Blood Pressure : / mmHG Vent. Rate : 091 BPM Atrial Rate : 091 BPM P-R Int : 144 ms QRS Dur : 072 ms QT Int : 374 ms P-R-T Axes : 060 044 012 degrees QTc Int : 460 ms Normal sinus rhythm Nonspecific ST abnormality Abnormal ECG When compared with ECG of 10-JUL-2018 15:30, No significant change was found Confirmed by QI HERNANDEZ (2) on 07/22/2018 8:01:32 PM Referred By: CARTER Confirmed By:QI HERNANDEZ
[2018-07-23] MEDS: Lisinopril 20 MG TAB PO SCH (09:41)
[2018-07-23] MEDS: Atorvastatin Calcium 20 MG TAB PO SCH (09:41)
[2018-07-23] MEDS: Ferrous Sulfate 325 MG TAB PO SCH ×2 (09:41→18:10)
--- NOTE | 2018-07-23 16:48 | PDOC.PN ---
- Subjective Encounter Start Date: 07/23/18 Encounter Start Time: 13:30 Ms. Curran was seen today in follow-up of Colon cancer and GI- bleed. She does not have any complaints. - Objective Resuscitation Status - Order Detail: 07/11/18 02:45 Resuscitation Status Routine Resuscitation Status: DNAR: NO Resuscitation Discussed with: patient and daughter ANDREA Reviewed: Yes Vital Signs & Weight: Vital Signs (12 hours) Temp Pulse Resp BP BP Pulse Ox 07/23/18 12:00 98.3 F 89 22 H 162/69 H 90 L 07/23/18 09:41 133/60 07/23/18 08:00 98.6 F 85 20 148/65 H 92 L Weight Admit Weight 146 lb 6.4 oz Weight 137 lb 14.4 oz I&O: 07/22/18 07/23/18 07/24/18 06:59 06:59 06:59 Intake Total 730 870 Balance 730 870 Result Diagrams: 07/20/18 04:28 07/20/18 04:28 Phys Exam - Physical Examination HEENT: PERRLA Respiratory: no wheezing, no rales, no rhonchi, clear to auscultation bilateral Cardiovascular: RRR, no significant murmur, no rub Gastrointestinal: soft, non-tender, no distention, positive bowel sounds Musculoskeletal: pulses present, edema present trace pedal edema Dx/Plan (1) Colon cancer Code(s): C18.9 - MALIGNANT NEOPLASM OF COLON, UNSPECIFIED Status: Acute Comment: await oncology input (2) Ischemic colitis Code(s): K55.9 - VASCULAR DISORDER OF INTESTINE, UNSPECIFIED Status: Acute (3) Dyslipidemia Code(s): E78.5 - HYPERLIPIDEMIA, UNSPECIFIED Status: Chronic Comment: continue statin (4) HTN (hypertension) Code(s): I10 - ESSENTIAL (PRIMARY) HYPERTENSION Status: Chronic Comment: PRN IV hydralazine - Plan * Colon cancer- patient wishes to delay work-up for a second opinion * HTN- blood pressure is stable * Generalized weakness and deconditioning- continue PT/OT, and await Rehab transfer.
[2018-07-23] MEDS: Acetaminophen 325 MG TAB PO PRN (23:12)
[2018-07-24] MEDS: Atorvastatin Calcium 20 MG TAB PO SCH (08:43)
[2018-07-24] MEDS: Lisinopril 20 MG TAB PO SCH (08:43)
[2018-07-24] MEDS: Ferrous Sulfate 325 MG TAB PO SCH ×2 (08:43→17:13)
--- NOTE | 2018-07-24 13:44 | PDOC.PN ---
- Subjective Encounter Start Date: 07/24/18 Encounter Start Time: 13:41 Ms. Curran was seen today in follow-up of Colon cancer. - Objective Resuscitation Status - Order Detail: 07/11/18 02:45 Resuscitation Status Routine Resuscitation Status: DNAR: NO Resuscitation Discussed with: patient and daughter ANDREA Reviewed: Yes Vital Signs & Weight: Vital Signs (12 hours) Temp Pulse Resp BP BP BP Pulse Ox 07/24/18 12:00 98.9 F 86 14 126/57 L 91 L 07/24/18 08:43 148/67 H 07/24/18 08:00 93 L 07/24/18 07:23 99.0 F 87 20 148/67 H 93 L 07/24/18 04:15 98.9 F 85 20 125/58 L 93 L Weight Admit Weight 146 lb 6.4 oz Weight 144 lb I&O: 07/23/18 07/24/18 07/25/18 06:59 06:59 06:59 Intake Total 870 800 Balance 870 800 Result Diagrams: 07/20/18 04:28 07/20/18 04:28 Phys Exam - Physical Examination HEENT: PERRLA Respiratory: no wheezing, no rales, no rhonchi, clear to auscultation bilateral Cardiovascular: RRR, no significant murmur, no rub Gastrointestinal: soft, non-tender, no distention, positive bowel sounds Musculoskeletal: no edema, pulses present Dx/Plan (1) Colon cancer Code(s): C18.9 - MALIGNANT NEOPLASM OF COLON, UNSPECIFIED Status: Acute Comment: await oncology input (2) Ischemic colitis Code(s): K55.9 - VASCULAR DISORDER OF INTESTINE, UNSPECIFIED Status: Acute (3) Dyslipidemia Code(s): E78.5 - HYPERLIPIDEMIA, UNSPECIFIED Status: Chronic Comment: continue statin (4) HTN (hypertension) Code(s): I10 - ESSENTIAL (PRIMARY) HYPERTENSION Status: Chronic Comment: PRN IV hydralazine - Plan * Colon cancer- patient is putting her treatment on hold pending a second opinion * HTN- blood pressure is stable * Deconditioning- continue PT/ OT and awaiting Rehab transfer.
--- NOTE | 2018-07-24 16:17 | PDOC.EVN ---
Event Note - Event Note Event Note: Called to evaluate patient for a decrease in responsiveness after she was up for therapy. A code cristofer was called, and by the time the stroke team arrived, she began to return back to her baseline. The change is status was discussed with her daughter, granddaughter and . She may have had a TIA, but she has had a full work-up for this earlier in her admission. She may also be a little dehydrated, so will give a trail of IV fluids and re-assess in the AM.
[2018-07-24] MEDS: Dextrose 5 % And 0.9 % NaCl 1,000 ML IV SCH (17:09)
[2018-07-24 19:18] VITALS: TEMP 98.7
[2018-07-25] MEDS: Dextrose 5 % And 0.9 % NaCl 1,000 ML IV SCH (08:14)
[2018-07-25] MEDS: Lisinopril 20 MG TAB PO SCH (08:29)
[2018-07-25] MEDS: Atorvastatin Calcium 20 MG TAB PO SCH (08:30)
[2018-07-25] MEDS: Ferrous Sulfate 325 MG TAB PO SCH ×2 (08:30→18:36)
[2018-07-25 12:42] VITALS: BMI 25.6
[2018-07-25 12:57] VITALS: BP 156/66
--- NOTE | 2018-07-25 13:04 | PDOC.PN ---
- Subjective Encounter Start Date: 07/25/18 Encounter Start Time: 13:03 Ms. Curran was seen today in follow-up of colon cancer. She does not have any complaints. She is much more alert than yesterday. - Objective Resuscitation Status - Order Detail: 07/11/18 02:45 Resuscitation Status Routine Resuscitation Status: DNAR: NO Resuscitation Discussed with: patient and daughter ANDREA Reviewed: Yes Vital Signs & Weight: Vital Signs (12 hours) Temp Pulse Resp BP BP Pulse Ox 07/25/18 12:00 98.7 F 88 18 156/66 H 91 L 07/25/18 08:29 148/67 H 07/25/18 08:00 98.7 F 84 18 142/63 H 92 L Weight Admit Weight 146 lb 6.4 oz Weight 140 lb 3.2 oz I&O: 07/24/18 07/25/18 07/26/18 06:59 06:59 06:59 Intake Total 800 660 Balance 800 660 Result Diagrams: 07/20/18 04:28 07/20/18 04:28 Additional Labs: Accuchecks 07/24/18 15:30 POC Glucose 150 H Phys Exam - Physical Examination HEENT: PERRLA Respiratory: no wheezing, no rales, no rhonchi, clear to auscultation bilateral Cardiovascular: RRR, no significant murmur, no rub Gastrointestinal: soft, non-tender, no distention, positive bowel sounds Musculoskeletal: no edema Dx/Plan (1) Colon cancer Code(s): C18.9 - MALIGNANT NEOPLASM OF COLON, UNSPECIFIED Status: Acute Comment: await oncology input (2) Ischemic colitis Code(s): K55.9 - VASCULAR DISORDER OF INTESTINE, UNSPECIFIED Status: Acute (3) Dyslipidemia Code(s): E78.5 - HYPERLIPIDEMIA, UNSPECIFIED Status: Chronic Comment: continue statin (4) HTN (hypertension) Code(s): I10 - ESSENTIAL (PRIMARY) HYPERTENSION Status: Chronic Comment: PRN IV hydralazine - Plan * Colon cancer with GI -bleed * HTN - blood pressure is stable * A bed has become available at Rehab- will therefore transfer today
--- NOTE | 2018-07-25 17:53 | RAD ---
RIGHT HAND THREE VIEWS: 07/25/18 HISTORY: Right hand pain and swelling. FINDINGS: Generalized swelling of the wrist and hand and distal forearm. Significant arthrosis changes are note d, in particular the trapezium first metacarpal joint. No fracture or dislocation. IMPRESSION: Generalized soft tissue swelling. Arthrosis, particularly the trapezium first metacarpal joint. No ot her acute process. POS: [facility]
--- NOTE | 2018-07-26 01:17 | DIS ---
DATE OF ADMISSION: 07/10/2018 DATE OF DISCHARGE: 07/25/2018 DISCHARGE DISPOSITION: Home. PRIMARY DISCHARGE DIAGNOSES: 1. 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 2. Hypertension. 3. Elevated cholesterol. 4. Deconditioning. DISCHARGE MEDICATIONS: Include, 1. Atorvastatin 20 mg daily. 2. Iron sulfate 325 mg twice daily. 3. Lisinopril 20 mg daily. 4. Pantoprazole 40 mg daily. PROCEDURES DONE DURING THE ADMISSION: The patient had a CT scan of the abdomen and pelvis and this demonstrated a conspicuous mural thickening involving the rectum, sigmoid colon, and to the lesser extent the descending colon. The patient also had an echocardiogram which showed an ejection fraction of 50% to 55%, normal left atrium, and left ventricular size was normal. The patient had a CT angiogram of the abdomen and pelvis, showing worsening bilateral pleural effusions. There is a fairly stable ascites. There is stable appearance of the colonic wall thickening, some changes in the descending colon compatible with colitis and ischemic colitis. Bilateral renal cyst. Patent celiac, superior mesenteric, and inferior mesenteric arteries. 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 CODE STATUS: DNAR. ALLERGIES: 1. CODEINE. 2. PENICILLIN. 3. SULFA. HOSPITAL COURSE: Ms. Curran is a very pleasant 83-year-old female who presented to the emergency room with GI bleeding. She had a colonoscopy already scheduled. However, due to her symptoms, she came to the hospital. CT of the abdomen was done. GI was consulted and she ultimately underwent a colonoscopy with the demonstration of a 3.4 cm ulcerated fungating mass in the cecum concerning for a colonic malignancy. There were some ulcerations in the rectum, consistent with ischemic colitis as well as external hemorrhoids. The area was biopsied and demonstrated moderately differentiated adenocarcinoma. Thus, General Surgery was consulted as well as Oncology. The patient's daughter, who is her medical power of employment attorney, did not want to proceed with the recommended resection. She in fact wanted to wait and get a 2nd opinion, and actually dismissed the surgeon as well as the oncologist and asked that they not come and see the patient again. She also wanted to direct the care regarding things as small as daily blood draws. The patient had become extremely weak over the course of the next few days, and the daughter made a decision to place the patient in inpatient rehab in hopes of getting her stronger and strong enough to go home and then to pursue a 2nd opinion at that point. I did discuss with her the dangers of doing this with regard to progression of the tumor. She voiced understanding and wanted to continue to proceed with her plan of care which would be to await any kind of staging or resection until she get in fact obtain the 2nd opinion. The patient was discharged to inpatient rehab on 07/25/2018. Job ID: [id number]
== END 2018-07-25 18:45 | DRG 375 ==
LOC: ERS 15:21 → ERHOLD 18:01 → 2NO 07-11 15:10 → ONC 07-18 20:24
PROVIDERS: ADMIT Emergency Medicine; ATTEND Emergency Medicine
PROC: 30233N1 Transfusion of Nonautologous Red Blood Cells into Peripheral Vein, Percutaneous Approach (ICD-10-PCS; 2018-07-12)
PROC: 0DBH8ZX Excision of Cecum, Via Natural or Artificial Opening Endoscopic, Diagnostic (ICD-10-PCS; principal; 2018-07-14)
PROC: 0DB98ZX Excision of Duodenum, Via Natural or Artificial Opening Endoscopic, Diagnostic (ICD-10-PCS; 2018-07-14)
PROC: 0DBM8ZX Excision of Descending Colon, Via Natural or Artificial Opening Endoscopic, Diagnostic (ICD-10-PCS; 2018-07-14)
PROC: 0DBN8ZX Excision of Sigmoid Colon, Via Natural or Artificial Opening Endoscopic, Diagnostic (ICD-10-PCS; 2018-07-14)
PROC: 0DBP8ZX Excision of Rectum, Via Natural or Artificial Opening Endoscopic, Diagnostic (ICD-10-PCS; 2018-07-14)
DX: C18.0 Malignant neoplasm of cecum (principal); K55.9 Vascular disorder of intestine, unspecified; D62 Acute posthemorrhagic anemia; J90 Pleural effusion, not elsewhere classified; N17.9 Acute kidney failure, unspecified; I69.354 Hemiplegia and hemiparesis following cerebral infarction affecting left non-dominant side; E87.6 Hypokalemia; R73.9 Hyperglycemia, unspecified; K22.2 Esophageal obstruction; E78.00 Pure hypercholesterolemia, unspecified; Z66 Do not resuscitate; K64.4 Residual hemorrhoidal skin tags; K31.819 Angiodysplasia of stomach and duodenum without bleeding; E83.42 Hypomagnesemia; E78.5 Hyperlipidemia, unspecified; E87.70 Fluid overload, unspecified; Z87.891 Personal history of nicotine dependence; Z88.5 Allergy status to narcotic agent; Z88.0 Allergy status to penicillin; Z88.2 Allergy status to sulfonamides; Z79.82 Long term (current) use of aspirin; Z79.899 Other long term (current) drug therapy
CPT/HCPCS: 36415; 36416; 36430; 51701; 70450; 71045; 72125; 74174; 74177; 80048; 80053; 81003; 81015; 82274; 82378; 83735; 85014; 85018; 85025; 85610; 85730; 86850; 86900; 86901; 87086; 87324; 87449; 88305; 93005; 93010; 93306; 93880; 96361; 96365; 96366; 96367; 96375; 96376; A4353; C9113; J0360; J0692; J0696; J1940; J2001; J2270; J2405; J2704; J3475; J7050; J7611; P9016; Q9966